=== PATIENT | female | born 1995 | race Caucasian/White ===

== ENCOUNTER 2020-05-27 12:32 | Emergency (ER) | payer OTHER, SELFPAY ==
[2020-05-27 13:44] VITALS: BP 104/74; PULSE 87; RESP 19; TEMP 36.9; O2SAT 98; BMI 31.4
--- NOTE | 2020-05-27 13:44 | CT_ITS ---
EXAMINATION: CT ABDOMEN AND PELVIS WITH CONTRAST CLINICAL INFORMATION: Right lower quadrant pain COMPARISON: 12/31/2014 TECHNIQUE: Multidetector volumetric images were obtained from the superior aspect of the liver through the pubic symphysis following administration 85 mL of Omnipaque 350 intravenous contrast. Sagittal and coronal reformatted images were obtained on the technologist's workstation. Oral contrast: No This CT examination was performed using dose optimization techniques as appropriate, variously including the following: *Automated exposure control *Adjustment of mA and/or kV according to patient size (this includes techniques or standardized protocols for targeted exams where dose is matched to indication/reason for exam; i.e. extremities or head) *Use of iterative reconstruction technique DLP: 497 mGy-cm FINDINGS: LUNG BASES: The visualized lung bases are unremarkable. LIVER, GALLBLADDER, AND BILIARY TREE: The liver is normal in size, shape, and attenuation. No focal hepatic lesion or biliary ductal dilatation is present. The gallbladder is unremarkable with no evidence of radiopaque gallstones, gallbladder wall thickening, or obvious pericholecystic inflammatory changes. PANCREAS: Unremarkable. SPLEEN: Unremarkable. ADRENAL GLANDS: Unremarkable. KIDNEYS AND URETERS: The kidneys are normal in size, shape, and attenuation. No hydronephrosis, hydroureter, or calculi seen. No perinephric stranding. BLADDER: Unremarkable. GASTROINTESTINAL TRACT: The stomach is unremarkable. Normal caliber small bowel. There is no obstruction. No colonic wall thickening or inflammatory change. Normal appendix noted extending posteriorly in the pelvis. No free air or free fluid. ABDOMINAL WALL: No significant hernia is appreciated. LYMPH NODES: Normal. VASCULAR: Unremarkable. PELVIC VISCERA: Anteverted uterus. No adnexal mass. Tampon in place within the vagina. OSSEOUS STRUCTURES: No acute or suspicious osseous abnormality. CT/CT abdomen pelvis w con IMPRESSION: No acute finding of the abdomen or pelvis. Normal appendix. No inflammatory changes.
--- NOTE | 2020-05-27 13:50 | ED_ITS ---
HPI - Abdominal Pain General Chief Complaint: Abdominal Pain Stated Complaint: abd pain Time Seen by Provider: 05/27/20 13:44 Source: patient Mode of arrival: ambulatory Limitations: no limitations History of Present Illness MD elicited complaint: abdominal pain Onset (ago): day(s) (last night) Pain Consistency: constant Location: epigastric Severity: moderate Radiation: epigastric Migration to: no migration Exacerbating factors: vomiting and movement Relieving factors: nothing Context: possible food poisoning (started after eating [employer]) Associated symptoms: nausea and vomiting Related Data Previous Rx's Medication Instructions Recorded ondansetron 4 mg PO Q8H PRN #20 tab 05/27/20 promethazine 6.25 mg PO TID PRN #20 tab 05/27/20 Allergies Allergy/AdvReac Type Severity Reaction Status Date / Time morphine [MORPHINE] AdvReac Mild ITCHING Unverified 03/31/20 17:15 Review of Systems Review of Systems Constitutional : No Weight loss, No Fever, No Chills ENT/Mouth : No sore throat, No Rhinorrhea Eyes: No Swelling, No Redness Cardiovascular : No Chest Pain, No SOB, NoEdema Respiratory : No Cough, No Sputum, No Wheezing Gastrointestinal : Positive Nausea, Positive Vomiting, no Diarrhea, positive abdominal Pain, No Hematochezia, No Melena Genitourinary : No Dysuria, No Urinary Frequency, No Hematuria, No Urgency Musculoskeletal : No joint pain, No Myalgias, No Joint Swelling Skin : No Skin Lesions, No rash Neuro : No Weakness, No Numbness, No Dizziness, No Headache Psych : No Anxiety/Panic, No Depression Heme/Lymph: No Bruising, No Lymphadenopathy Endocrine : No Polyuria, No Polydipsia All other systems reviewed and are negative. Physical Exam Vital Signs: Vital Signs: Last Vital Signs Temp 98.4 F 05/27/20 13:44 Pulse 87 05/27/20 13:44 Resp 19 05/27/20 13:44 BP 104/74 05/27/20 13:44 Pulse Ox 98 05/27/20 13:44 Body Mass Index 31.4 Appearance: Alert. Oriented X3. active vomiting, no acute distress, pos anxiety Eyes: Pupils equal, round and reactive to light. ENT: Pharynx dry MM Neck: Normal inspection. Neck supple. CVS: Normal heart rate and rhythm. Pulses normal. Respiratory: No respiratory distress. Breath sounds normal. Abdomen: Soft and nontender. Skin: Skin warm and dry. Normal skin color. Normal skin turgor. Extremities: No lower extremity edema. No calf ttp Neuro: Oriented X 3. No motor deficit. No sensory deficit. Course Course Course Narrative: feels better, not toxic, WBC due to vomting, labs and CT scan negative MDM - Abdominal Pain MDM Narrative Medical decision making narrative: 25 yo female with upper abdominal pain and RLQ pain - here with vomiting after eating [employer] - possible food poisoning vs appendicitis, will need labs, IVF, IV reglan, CT scan to evaluate for appendicitis Lab Data Result diagrams: 05/27/20 14:13 05/27/20 14:13 Labs: Lab Results 05/27/20 05/27/20 05/27/20 Range/Units 14:13 14:13 14:13 WBC 16.1 H (4.8-10.8) X10*3/uL RBC 4.71 (4.20-5.50) X10*6/uL Hgb 14.8 (12.0-16.0) g/dl Hct 43.6 (37-47) % MCV 92.6 (80-98) fL MCH 31.4 (27.0-33.0) pg MCHC 33.9 (31.0-35.0) g/dl RDW 12.3 (11.0-16.0) % Plt Count 373 (160-400) X10*3/uL MPV 9.4 (9.4-12.3) fL Immature Gran % (Auto) 0.5 H (0.0-0.4) % Neut % (Auto) 81.4 H (45-73) % Lymph % (Auto) 12.8 L (20-40) % [place] % (Auto) 5.1 (2-11) % Eos % (Auto) 0.1 (0-4) % Baso % (Auto) 0.1 (0-2) % Lymph # (Auto) 2.1 (1.2-4.9) X10*3/uL [place] # (Auto) 0.8 (0.1-1.2) X10*3/uL Eos # (Auto) 0.0 (0.0-0.4) X10*3/uL Baso # (Auto) 0.0 (0.0-0.2) X10*3/uL Abs Immat Gran (auto) 0.08 H (0.00-0.03) X10*3/uL Absolute Neuts (auto) 13.1 H (2.0-8.3) X10*3/uL Absolute Nucleated RBC 0.000 (0.0-0.012) X10*3/uL Nucleated RBC % (auto) 0.0 (0.0-0.2) /100WBC Hold Blue Top SEE NOTE Sodium 139 (135-145) mmol/L Potassium 3.8 (3.3-5.1) mmol/l Chloride 105 (96-108) mmol/L Carbon Dioxide 23 (22-29) mmol/L Anion Gap 15 (12-20) BUN 12 (9-16) mg/dL Creatinine 0.73 (0.5-1.4) mg/dL Estim Creat Clear Calc 111.9 Estimated GFR > 60 Random Glucose 110 (60-115) mg/dL Calcium 9.4 (8.4-10.2) mg/dL Magnesium (1.6-2.6) mg/dL Total Bilirubin (0.0-1.0) mg/dL Direct Bilirubin (0.0-0.5) mg/dL AST (5-31) U/L ALT (0-31) U/L Alkaline Phosphatase (39-117) U/L Total Protein (6.5-8.0) g/dL Albumin (3.5-5.0) g/dL Lipase (8-78) U/L Urine Color Urine Appearance Urine pH (5.0-8.0) Ur Specific [place] (1.005-1.025) Urine Protein (NEG-TRACE) MG/DL Urine Glucose (UA) (NEG) MG/DL Urine Ketones (NEG) MG/DL Urine Blood (NEG) Urine Nitrite (NEG) Ur Leukocyte Esterase (NEG) Urine RBC (0) /HPF Urine WBC (0-4) /HPF Ur Squamous Epith Cells /LPF Urine Bacteria /LPF Urine Mucus /LPF Urine Test (NEGATIVE) 05/27/20 05/27/20 Range/Units 14:13 14:18 WBC (4.8-10.8) X10*3/uL RBC (4.20-5.50) X10*6/uL Hgb (12.0-16.0) g/dl Hct (37-47) % MCV (80-98) fL MCH (27.0-33.0) pg MCHC (31.0-35.0) g/dl RDW (11.0-16.0) % Plt Count (160-400) X10*3/uL MPV (9.4-12.3) fL Immature Gran % (Auto) (0.0-0.4) % Neut % (Auto) (45-73) % Lymph % (Auto) (20-40) % [place] % (Auto) (2-11) % Eos % (Auto) (0-4) % Baso % (Auto) (0-2) % Lymph # (Auto) (1.2-4.9) X10*3/uL [place] # (Auto) (0.1-1.2) X10*3/uL Eos # (Auto) (0.0-0.4) X10*3/uL Baso # (Auto) (0.0-0.2) X10*3/uL Abs Immat Gran (auto) (0.00-0.03) X10*3/uL Absolute Neuts (auto) (2.0-8.3) X10*3/uL Absolute Nucleated RBC (0.0-0.012) X10*3/uL Nucleated RBC % (auto) (0.0-0.2) /100WBC Hold Blue Top Sodium (135-145) mmol/L Potassium (3.3-5.1) mmol/l Chloride (96-108) mmol/L Carbon Dioxide (22-29) mmol/L Anion Gap (12-20) BUN (9-16) mg/dL Creatinine (0.5-1.4) mg/dL Estim Creat Clear Calc Estimated GFR Random Glucose (60-115) mg/dL Calcium (8.4-10.2) mg/dL Magnesium 2.0 (1.6-2.6) mg/dL Total Bilirubin 0.5 (0.0-1.0) mg/dL Direct Bilirubin 0.2 (0.0-0.5) mg/dL AST 13 (5-31) U/L ALT 13 (0-31) U/L Alkaline Phosphatase 115 (39-117) U/L Total Protein 7.4 (6.5-8.0) g/dL Albumin 4.6 (3.5-5.0) g/dL Lipase 29 (8-78) U/L Urine Color YELLOW Urine Appearance CLOUDY Urine pH 6.5 (5.0-8.0) Ur Specific [place] >= 1.030 H (1.005-1.025) Urine Protein 2+ H (NEG-TRACE) MG/DL Urine Glucose (UA) NEG (NEG) MG/DL Urine Ketones >=80 (NEG) MG/DL Urine Blood 3+ H (NEG) Urine Nitrite NEG (NEG) Ur Leukocyte Esterase TRACE H (NEG) Urine RBC 50-75 H (0) /HPF Urine WBC 1-4 (0-4) /HPF Ur Squamous Epith Cells 1+ /LPF Urine Bacteria NONE /LPF Urine Mucus 1+ /LPF Urine Test NEGATIVE (NEGATIVE) Discharge Plan Discharge Clinical Impression: Abdominal pain in female Vomiting Qualifiers: Vomiting type: unspecified Vomiting Intractability: non-intractable Nausea presence: with nausea Qualified Code(s): R11.2 - Nausea with vomiting, un specified Patient Disposition: Home, Self-Care Instructions: Acute Nausea and Vomiting (ED), Abdominal Pain (ED) Additional Instructions: return to ED for any worsening symptoms or concerns Prescriptions: New ondansetron 4 mg tablet,disintegrating 4 mg PO Q8H PRN (Reason: nausea and vomiting) Qty: 20 RF: 0 promethazine 25 mg tablet 6.25 mg PO TID PRN (Reason: nausea and vomiting) Qty: 20 RF: 0 Referrals: Physician,Unknown [Primary Care Provider] - 2 days (PCP if not better) [facility] Past Medical History Attestation statement: The following information was validated with the patient. Medical History Heavy menses Menses painful Social History Social History Alcohol intake: never Smoking Status: Current every day smoker Use of substances other than those prescribed or required for medical reasons: Yes Substance Use Type: Marijuana and Opiates Substance Use Frequency: Daily Last Used Substance: Just Prior to Admission Any prior treatment program specific to substance use: No Advance Directives: Yes Advance Directives Information Provided: Yes (MOTHER) Advance Directives on File: No
--- NOTE | 2020-05-27 14:14 | PC.NURSE ---
iv inserted, labs drawn
[2020-05-27 14:17] LABS: MANUAL DIFF FLAG NO
[2020-05-27] MEDS: 0.9 % Sodium Chloride 1,000 ML 999 ML IVCONT (14:18)
[2020-05-27] MEDS: Metoclopramide HCl 10 MG/2 ML VIAL IVPUSH (14:19)
[2020-05-27] MEDS: Ketorolac Tromethamine 30 MG/ML VIAL IVPUSH (14:19)
[2020-05-27] MEDS: diphenhydrAMINE HCL 50 MG/ML VIAL 25 MG IVPUSH (14:19)
[2020-05-27 14:22] LABS: Basophils Percent Auto 0.1 % (0-2); Eosinophils Percent Auto 0.1 % (0-4); Hematocrit 43.6 % (37-47); Hemoglobin 14.8 g/dl (12.0-16.0); Imm Gran Abs Auto 0.08 X10*3/uL (0.00-0.03); Imm Gran Pct Auto 0.5 % (0.0-0.4); Lymphocytes Absolute Auto 2.1 X10*3/uL (1.2-4.9); Lymphocytes Percent Auto 12.8 % (20-40); Mean Corpuscular HGB Conc 33.9 g/dl (31.0-35.0); Mean Corpuscular Hemoglobin 31.4 pg (27.0-33.0); Mean Corpuscular Volume 92.6 fL (80-98); Mean Platelet Volume 9.4 fL (9.4-12.3); Monocytes Absolute Auto 0.8 X10*3/uL (0.1-1.2); Monocytes Percent Auto 5.1 % (2-11); Neutrophils Absolute Auto 13.1 X10*3/uL (2.0-8.3); Neutrophils Percent Auto 81.4 % (45-73); Platelet Count 373 X10*3/uL (160-400); Red Blood Count 4.71 X10*6/uL (4.20-5.50); Red Cell Distribution Width 12.3 % (11.0-16.0); White Blood Count 16.1 X10*3/uL (4.8-10.8)
--- NOTE | 2020-05-27 14:26 | PC.NURSE ---
pt a&ox3, talking on cell phone, iv inserted, labs drawn, urine obtained, pt medicated per order, vss, will continue to monitor.
[2020-05-27 14:34] LABS: Glucose Urine UA NEG (NEG); Leukocyte Esterase Urine TRACE (NEG); Nitrite Urine NEG (NEG); PH 6.5 (5.0-8.0); Specific Gravity - Urine >= 1.030 (1.005-1.025); Urine Blood 3+ (NEG); Urine Ketones >=80 MG/DL (NEG); Urine Protein 2+ MG/DL (NEG-TRACE)
[2020-05-27 14:37] LABS: Appearance Urine CLOUDY; Color Urine YELLOW
[2020-05-27 14:38] LABS: UPreg QC Valid YES; Urine Pregnancy NEGATIVE (NEGATIVE)
[2020-05-27 14:41] LABS: Anion Gap 15 (12-20); Blood Urea Nitrogen 12 mg/dL (9-16); Calcium 9.4 mg/dL (8.4-10.2); Carbon Dioxide 23 mmol/L (22-29); Chloride 105 mmol/L (96-108); Creatinine Clr Calc Pharmacy 111.9; Estimated Glomerular Filt Rate > 60; Glucose Random 110 mg/dL (60-115); Potassium 3.8 mmol/l (3.3-5.1); Sodium 139 mmol/L (135-145)
[2020-05-27 14:42] LABS: Alanine Aminotransferase 13 U/L (0-31); Albumin Level 4.6 g/dL (3.5-5.0); Alkaline Phosphatase 115 U/L (39-117); Aspartate Amino Transferase 13 U/L (5-31); Bilirubin Direct 0.2 mg/dL (0.0-0.5); Bilirubin Total 0.5 mg/dL (0.0-1.0); Lipase 29 U/L (8-78); Total Protein 7.4 g/dL (6.5-8.0)
[2020-05-27 14:44] LABS: Mucus Urine 1+ /LPF; Squamous Epithelial Cell Urine 1+ /LPF
[2020-05-27 14:45] LABS: RBC Urine 50-75 /HPF (0)
[2020-05-27] MEDS: iohexoL 350 MG/ML 100 ML INFUS..BTL IV (14:53)
--- NOTE | 2020-05-27 14:56 | PC.NURSE ---
pt return from ct scan
== END 2020-05-27 16:01 | disposition home or self-care (01) ==
PROVIDERS: Emergency Provider Emergency Medicine
DX: R10.31 Right lower quadrant pain (principal); R11.2 Nausea with vomiting, unspecified; F11.90 Opioid use, unspecified, uncomplicated; F12.90 Cannabis use, unspecified, uncomplicated; F17.200 Nicotine dependence, unspecified, uncomplicated; Z71.6 Tobacco abuse counseling; Z79.899 Other long term (current) drug therapy
CPT/HCPCS: 36415; 74177; 80048; 80076; 81001; 81025; 83690; 83735; 85025; 87086; 96361; 96374; 96375; 99284; J1200; J1885; J2765; Q9967

== ENCOUNTER 2020-05-28 09:28 | Emergency (ER) | payer OTHER, SELFPAY ==
[2020-05-28 09:36] VITALS: BP 132/97; PULSE 80; RESP 16; TEMP 36.2; O2SAT 100; BMI 31.1
--- NOTE | 2020-05-28 09:55 | US_ITS ---
EXAMINATION: US ABDOMEN LIMITED CLINICAL INFORMATION: 25-year-old female patient with upper abdominal pain.. COMPARISON: CT of the abdomen and pelvis on 05/27/2020. (Negative). TECHNIQUE: Real-time imaging of the right upper quadrant abdominal viscera. FINDINGS: PANCREAS: Normal. LIVER: Normal. The liver is normal in size. The liver contour is normal. Parenchymal echogenicity is normal. No focal hepatic lesion. There is no intrahepatic biliary duct dilatation seen. GALLBLADDER: Normal. The gallbladder is physiologically distended without evidence of stones, sludge, polyps, wall thickening or pericholecystic fluid. A phrygian cap is present. COMMON BILE DUCT: Normal in caliber measuring 0.3 cm in diameter. RIGHT KIDNEY: Normal. No hydronephrosis. No renal calculi or focal parenchymal lesions. The kidney measures 10.6 cm in maximum dimension. FREE FLUID: None. US/US abdomen limited IMPRESSION: Normal exam.
[2020-05-28] MEDS: Metoclopramide HCl 10 MG/2 ML VIAL IVPUSH (10:07)
[2020-05-28] MEDS: 0.9 % Sodium Chloride 1,000 ML 999 ML IVCONT (10:07)
--- NOTE | 2020-05-28 10:16 | ED.ABDPAIN ---
HPI - Abdominal Pain General Chief Complaint: Abdominal Pain Stated Complaint: VOMITING ABD PAIN Time Seen by Provider: 05/28/20 09:52 Source: patient Mode of arrival: ambulatory Limitations: no limitations History of Present Illness HPI narrative: 25yoF painful/heavy menses presenting to the ED with complaints of nausea/vomiting with severe diffuse abdominal pain. She was seen here for the same thing yesterday and had a full workup including a CT scan of abdomen and pelvis and everything was within normal limits. She was noted to have an elevated white blood cell count yesterday at 16,000 otherwise all other labs were within normal limits. She reports she smokes marijuana daily. Denies recent travel or sick contacts. Denies bad food exposure. Denies any other symptoms complaints or concerns at this time. Related Data Previous Rx's Medication Instructions Recorded ondansetron 4 mg PO Q8H PRN #20 tab 05/27/20 promethazine 6.25 mg PO TID PRN #20 tab 05/27/20 diphenhydramine HCl [Benadryl 25 mg PO Q6H PRN #10 tab 05/28/20 Allergy] promethazine 25 mg PO TID PRN #10 tab 05/28/20 Allergies Allergy/AdvReac Type Severity Reaction Status Date / Time morphine [MORPHINE] AdvReac Mild ITCHING Unverified 03/31/20 17:15 Review of Systems Review of Systems Constitutional : No Weight loss, No Fever, No Chills, No Night Sweats, No Fatigue, NoMalaise ENT/Mouth: No ear pain, No sore throat, No Difficulty swallowing Cardiovascular : No Chest Pain, No SOB, No Dyspnea on Exertion, No Orthopnea, NoEdema, No Palpitations Respiratory : No Cough, No Sputum, No Wheezing, No Dyspnea Gastrointestinal : + Nausea, + Vomiting, No Diarrhea, + abdominal Pain, No Hematochezia, No Melena Genitourinary : No irregular bleeding, No Dysuria, No Urinary Frequency, No Hematuria,No Urinary Incontinence, No Urgency, No Flank Pain Musculoskeletal : No joint pain, No Myalgias, No Joint Swelling Skin : No Skin Lesions, No rash Neuro : No Weakness, No Numbness, No Paresthesias, No Loss of Consciousness, NoDizziness, No Headache Psych : No Social Issues, Heme/Lymph: No Bruising, No Bleeding,No Lymphadenopathy Endocrine : No Polyuria, No Polydipsia, No Temperature Intolerance Yes all other systems are reviewed and are negative Physical Exam Vital Signs: Vital Signs: Last Vital Signs Temp 98.6 F 05/28/20 15:56 Pulse 75 05/28/20 15:56 Resp 12 05/28/20 15:56 BP 98/54 L 05/28/20 15:56 Pulse Ox 98 05/28/20 15:56 Body Mass Index 31.1 vital signs have been reviewed as normal and appeared to be correct. Blood pressure normal. Heart rate normal. Respiration rate normal. Temperature normal. Oxygen saturation normal. Appearance: Alert. Oriented X3. Very anxious screaming rolling around in the bed saying that her abdomen hurts otherwise No acute distress. Head: Normal external exam. Normocephalic. Eyes: PERRLA. EOMI. Conjunctiva and sclera normal. Eyelids normal. ENT: EAC normal. Pharynx normal. Uvula midline. Moist mucous membranes. Neck: Normal inspection. Neck supple. FROM. No adenopathy. No meningeal signs. CVS: Normal heart rate and rhythm. Heart sound normal. No murmurs noted. Pulses normal throughout. Respiratory: No respiratory distress. Painless inspiration. Breath sounds normal. No wheezes/rales/rhonchi noted. Chest nontender. No accessory muscle usage noted or decreased air movement noted. Abdomen: Soft and TTP diffusely. Bowel sounds normal in all 4 quadrants. No distention noted. No organomegaly noted. No visible injury noted. Back: No CVA tenderness. Full range of motion noted. Skin: Skin warm and dry. Normal skin color. Normal skin turgor. No rashes/lesions/lacerations noted. Extremities: Extremities exhibit normal range of motion. Extremities nontender. Neuro: Oriented X 3. No motor deficit. No sensory deficit. Reflexes normal. Course Course Course Narrative: 10am - 25yoF painful/heavy Min assist presenting to the ED with complaints of nausea/vomiting with severe diffuse abdominal pain. - patient was seen here yesterday had a CT scan abdomen pelvis which was within normal limits no evidence of cholecystitis or appendicitis or any other acute processes. Patient an elevated white blood cell count otherwise all other labs were within normal limits. - concern for marijuana induced cyclic vomiting vs cholecystitis. - Plan: Labs, US of abd limited of upper abdomen as patient is reporting upper abdominal pain, UA, UHCG. Provide symptomatic treatment 1 L of IV fluids, 30 mg of Toradol, 10 mg of Reglan and 25 mg of Benadryl and re-evaluate. Reevaluation(s) Reevaluation #1: - [place] [address] has decreased when compared to yesterday was at 16,000. Otherwise normal limits. Ultrasound of abdomen limited is within normal limits no acute processes such as cholecystitis noted. - patient continued to complain about nausea and vomiting therefore she was also given half a mg of Ativan, 12.5 mg of Phenergan. I just went to reassess the patient and she is now resting and requested to let her rest for a little while longer. After this I would re-evaluate and attempt a p.o. fluid trial and attempt to discharge. Patient understands agrees with this plan. Will re-evaluate Time: 12:39 Reevaluation #2: Patient is now awake and alert feeling a lot better denies any active belly pain has not had any nausea vomiting since the Ativan and the Phenergan. Is now tolerating p.o. fluids. Requesting to go home at this time. Will DC home with symptomatic treatment along with instructions return if any new or worsening symptoms to follow up with primary care provider. Patient understands agrees the plan. Time: 16:35 MDM - Abdominal Pain Medical Records Attestation: I reviewed the patient's medical records. Lab Data Attestation: I reviewed the patient's lab results. Result diagrams: 05/28/20 10:13 05/28/20 10:53 Labs: Lab Results 05/28/20 05/28/20 05/28/20 Range/Units 10:13 10:13 10:13 WBC 14.6 H (4.8-10.8) X10*3/uL RBC 4.75 (4.20-5.50) X10*6/uL Hgb 15.1 (12.0-16.0) g/dl Hct 43.9 (37-47) % MCV 92.4 (80-98) fL MCH 31.8 (27.0-33.0) pg MCHC 34.4 (31.0-35.0) g/dl RDW 12.5 (11.0-16.0) % Plt Count 400 (160-400) X10*3/uL MPV 9.4 (9.4-12.3) fL Immature Gran % (Auto) 0.5 H (0.0-0.4) % Neut % (Auto) 59.1 (45-73) % Lymph % (Auto) 33.9 (20-40) % [place] % (Auto) 5.8 (2-11) % Eos % (Auto) 0.5 (0-4) % Baso % (Auto) 0.2 (0-2) % Lymph # (Auto) 4.9 (1.2-4.9) X10*3/uL [place] # (Auto) 0.9 (0.1-1.2) X10*3/uL Eos # (Auto) 0.1 (0.0-0.4) X10*3/uL Baso # (Auto) 0.0 (0.0-0.2) X10*3/uL Abs Immat Gran (auto) 0.07 H (0.00-0.03) X10*3/uL Absolute Neuts (auto) 8.6 H (2.0-8.3) X10*3/uL Absolute Nucleated RBC 0.000 (0.0-0.012) X10*3/uL Nucleated RBC % (auto) 0.0 (0.0-0.2) /100WBC PT 11.1 (10.8-13.0) SEC INR 0.9 (0.9-1.1) Sodium Cancelled Potassium Cancelled Chloride Cancelled Carbon Dioxide Cancelled Anion Gap Cancelled BUN Cancelled Creatinine Cancelled Estim Creat Clear Calc Cancelled Estimated GFR Cancelled Random Glucose Cancelled Calcium Cancelled Magnesium Cancelled Total Bilirubin Cancelled Direct Bilirubin Cancelled AST Cancelled ALT Cancelled Alkaline Phosphatase Cancelled Total Protein Cancelled Albumin Cancelled 05/28/20 Range/Units 10:53 WBC (4.8-10.8) X10*3/uL RBC (4.20-5.50) X10*6/uL Hgb (12.0-16.0) g/dl Hct (37-47) % MCV (80-98) fL MCH (27.0-33.0) pg MCHC (31.0-35.0) g/dl RDW (11.0-16.0) % Plt Count (160-400) X10*3/uL MPV (9.4-12.3) fL Immature Gran % (Auto) (0.0-0.4) % Neut % (Auto) (45-73) % Lymph % (Auto) (20-40) % [place] % (Auto) (2-11) % Eos % (Auto) (0-4) % Baso % (Auto) (0-2) % Lymph # (Auto) (1.2-4.9) X10*3/uL [place] # (Auto) (0.1-1.2) X10*3/uL Eos # (Auto) (0.0-0.4) X10*3/uL Baso # (Auto) (0.0-0.2) X10*3/uL Abs Immat Gran (auto) (0.00-0.03) X10*3/uL Absolute Neuts (auto) (2.0-8.3) X10*3/uL Absolute Nucleated RBC (0.0-0.012) X10*3/uL Nucleated RBC % (auto) (0.0-0.2) /100WBC PT (10.8-13.0) SEC INR (0.9-1.1) Sodium 141 Potassium 3.6 Chloride 107 Carbon Dioxide 21 L Anion Gap 17 BUN 13 Creatinine 0.82 Estim Creat Clear Calc 99.0 Estimated GFR > 60 Random Glucose 88 Calcium 8.4 D Magnesium 1.9 Total Bilirubin 0.7 Direct Bilirubin 0.2 AST 18 ALT 13 Alkaline Phosphatase 104 Total Protein 6.9 Albumin 4.2 Discharge Plan Discharge Clinical Impression: Cannabis-induced disorder, Cyclical vomiting Abdominal pain Qualifiers: Abdominal location: upper abdomen, unspecified Qualified Code(s): R10.10 - Upper abdominal pain, unspecified Patient Disposition: Home, Self-Care Instructions: Cyclic Vomiting Syndrome (ED) Prescriptions: New promethazine 25 mg tablet 25 mg PO TID PRN (Reason: nausea and vomiting) Qty: 10 RF: 0 diphenhydramine HCl [Benadryl Allergy] 25 mg tablet 25 mg PO Q6H PRN (Reason: nausea and vomiting) Qty: 10 RF: 0 No Action ondansetron 4 mg tablet,disintegrating 4 mg PO Q8H PRN (Reason: nausea and vomiting) Qty: 20 RF: 0 promethazine 25 mg tablet 6.25 mg PO TID PRN (Reason: nausea and vomiting) Qty: 20 RF: 0 Referrals: Physician,None [Primary Care Provider] - 2 days (your PCP) Stand Alone Forms: Work/School Release Print Language: Setswana [facility] Past Medical History Attestation statement: The following information was validated with the patient. Medical History Heavy menses Menses painful Social History Social History Alcohol intake: never Smoking Status: Current every day smoker Substance Use Type: Marijuana and Opiates Advance Directives: No Advance Directives Information Provided: No
[2020-05-28] MEDS: diphenhydrAMINE HCL 50 MG/ML VIAL 25 MG IVPUSH (10:17)
[2020-05-28 10:18] LABS: MANUAL DIFF FLAG NO
[2020-05-28] MEDS: Ketorolac Tromethamine 15 MG/ML VIAL 30 MG IV (10:18)
--- NOTE | 2020-05-28 10:20 | PC.NURSE ---
PT FORCING HERSELF TO GAG AND VOMIT MEDICATED PER MD ORDERS U/S AT BEDSIDE
[2020-05-28 10:33] LABS: Basophils Percent Auto 0.2 % (0-2); Eosinophils Absolute Auto 0.1 X10*3/uL (0.0-0.4); Eosinophils Percent Auto 0.5 % (0-4); Hematocrit 43.9 % (37-47); Hemoglobin 15.1 g/dl (12.0-16.0); Imm Gran Abs Auto 0.07 X10*3/uL (0.00-0.03); Imm Gran Pct Auto 0.5 % (0.0-0.4); Lymphocytes Absolute Auto 4.9 X10*3/uL (1.2-4.9); Lymphocytes Percent Auto 33.9 % (20-40); Mean Corpuscular HGB Conc 34.4 g/dl (31.0-35.0); Mean Corpuscular Hemoglobin 31.8 pg (27.0-33.0); Mean Corpuscular Volume 92.4 fL (80-98); Mean Platelet Volume 9.4 fL (9.4-12.3); Monocytes Absolute Auto 0.9 X10*3/uL (0.1-1.2); Monocytes Percent Auto 5.8 % (2-11); Neutrophils Absolute Auto 8.6 X10*3/uL (2.0-8.3); Neutrophils Percent Auto 59.1 % (45-73); Platelet Count 400 X10*3/uL (160-400); Red Blood Count 4.75 X10*6/uL (4.20-5.50); Red Cell Distribution Width 12.5 % (11.0-16.0); White Blood Count 14.6 X10*3/uL (4.8-10.8)
--- NOTE | 2020-05-28 10:39 | PC.NURSE ---
GOOD EFFECT FROM MEDS,
[2020-05-28 10:49] LABS: INTERNATIONAL NORM RATIO 0.9 (0.9-1.1); Prothrombin Time 11.1 SEC (10.8-13.0)
[2020-05-28 11:29] LABS: Alanine Aminotransferase 13 U/L (0-31); Albumin Level 4.2 g/dL (3.5-5.0); Alkaline Phosphatase 104 U/L (39-117); Anion Gap 17 (12-20); Aspartate Amino Transferase 18 U/L (5-31); Bilirubin Direct 0.2 mg/dL (0.0-0.5); Bilirubin Total 0.7 mg/dL (0.0-1.0); Blood Urea Nitrogen 13 mg/dL (9-16); Calcium 8.4 mg/dL (8.4-10.2); Carbon Dioxide 21 mmol/L (22-29); Chloride 107 mmol/L (96-108); Estimated Glomerular Filt Rate > 60; Glucose Random 88 mg/dL (60-115); Magnesium 1.9 mg/dL (1.6-2.6); Potassium 3.6 mmol/l (3.3-5.1); Sodium 141 mmol/L (135-145); Total Protein 6.9 g/dL (6.5-8.0)
[2020-05-28 11:33] VITALS: BP 114/82; PULSE 88; RESP 20; TEMP 36.6
[2020-05-28] MEDS: LORazepam 2 MG/ML VIAL 0.5 MG IVPUSH (11:51)
--- NOTE | 2020-05-28 14:24 | PC.NURSE ---
PT IS SLEEPING, RESPIRATIONS EASY AND EVEN
[2020-05-28 15:56] VITALS: BP 98/54; PULSE 75; RESP 12; TEMP 37; O2SAT 98
--- NOTE | 2020-05-28 15:57 | PC.NURSE ---
AROUSES EASILY, DENIES PAIN AND NAUSEA COLOR PINK, SKIN WARM AND DRY
[2020-05-28 16:47] VITALS: BP 110/65; PULSE 78; RESP 14; TEMP 36.6
== END 2020-05-28 16:59 | disposition home or self-care (01) ==
PROVIDERS: Physician Assistant Medical; Emergency Provider Emergency Medicine
DX: R11.15 Cyclical vomiting syndrome unrelated to migraine (principal); F12.90 Cannabis use, unspecified, uncomplicated; R11.2 Nausea with vomiting, unspecified; F11.90 Opioid use, unspecified, uncomplicated; Z79.899 Other long term (current) drug therapy; F17.200 Nicotine dependence, unspecified, uncomplicated; Z71.6 Tobacco abuse counseling
CPT/HCPCS: 76705; 80048; 80076; 83735; 85025; 85610; 96361; 96374; 96375; 99284; J1200; J1885; J2060; J2765

== ENCOUNTER 2020-07-02 13:14 | Emergency (ER) | payer OTHER, SELFPAY ==
[2020-07-02 13:22] VITALS: BP 111/76; BP 121/82; PULSE 72; PULSE 81; RESP 20; TEMP 36.5; O2SAT 100; O2SAT 99; BMI 30.3
--- NOTE | 2020-07-02 13:23 | ED_ITS ---
HPI - Abdominal Pain General Chief Complaint: Abdominal Pain Stated Complaint: R LOW ABD PAIN Time Seen by Provider: 07/02/20 13:19 Source: patient, EMS and old records reviewed Mode of arrival: EMS History of Present Illness MD elicited complaint: abdominal pain and other (n/v) Pertinent past history: other (seen here x 2 in May as well - negative US and CT scan) Onset (ago): month(s) (1) Pain Consistency: constant Location: RLQ Severity: moderate Radiation: none Migration to: no migration Exacerbating factors: movement Relieving factors: nothing Context: history of similar episodes Associated symptoms: nausea and vomiting Related Data Previous Rx's Medication Instructions Recorded ondansetron 4 mg PO Q8H PRN #20 tab 05/27/20 promethazine 6.25 mg PO TID PRN #20 tab 05/27/20 diphenhydramine HCl [Benadryl 25 mg PO Q6H PRN #10 tab 05/28/20 Allergy] promethazine 25 mg PO TID PRN #10 tab 05/28/20 Allergies Allergy/AdvReac Type Severity Reaction Status Date / Time morphine [MORPHINE] AdvReac Mild ITCHING Verified 07/02/20 13:25 Review of Systems Review of Systems Constitutional : No Weight loss, No Fever, No Chills ENT/Mouth : No sore throat, No Rhinorrhea Eyes: No Swelling, No Redness Cardiovascular : No Chest Pain, No SOB, NoEdema Respiratory : No Cough, No Sputum, No Wheezing Gastrointestinal : Positive Nausea, Positive Vomiting, no Diarrhea, positive abdominal Pain, No Hematochezia, No Melena Genitourinary : No Dysuria, No Urinary Frequency, No Hematuria, No Urgency Musculoskeletal : No joint pain, No Myalgias, No Joint Swelling Skin : No Skin Lesions, No rash Neuro : No Weakness, No Numbness, No Dizziness, No Headache Psych : No Anxiety/Panic, No Depression Heme/Lymph: No Bruising, No Lymphadenopathy Endocrine : No Polyuria, No Polydipsia All other systems reviewed and are negative. Physical Exam Vital Signs: Vital Signs: Last Vital Signs Temp 97.7 F 07/02/20 13:22 Pulse 81 07/02/20 13:22 Resp 20 07/02/20 13:22 BP 121/82 07/02/20 13:22 Pulse Ox 99 07/02/20 13:22 Body Mass Index 30.3 Appearance: Alert. Oriented X3. No acute distress. yelling out loud, on facetime yelling into phone Eyes: Pupils equal, round and reactive to light. ENT: Pharynx normal. Neck: Normal inspection. Neck supple. CVS: Normal heart rate and rhythm. Pulses normal. Respiratory: No respiratory distress. Breath sounds normal. Abdomen: Soft and moderate RLQ tenderness no rebound or guarding. Skin: Skin warm and dry. Normal skin color. Normal skin turgor. Extremities: No lower extremity edema. No calf ttp Neuro: Oriented X 3. No motor deficit. No sensory deficit. Course Course Course Narrative: WBC 20K but patient was actively in bathroom repeatedly dry heaving, yelling like acute phase and due to vomiting patient now up on stretcher states she wants to leave and go to [facility], aware her labs are pending, she has been on the phone fighting with her significant other for the most of her ED visit MDM - Abdominal Pain MDM Narrative Medical decision making narrative: 25 yo female seen last month around her menses had negative US and CT scan at that time for RLQ pain presents wtih the same, at this time will need labs, IVF, IV ativan and haldol for n/v, unless sig lab derangement will hold off imaging could be related to upcoming menses Lab Data Result diagrams: 07/02/20 13:46 07/02/20 14:23 Labs: Lab Results 07/02/20 07/02/20 07/02/20 Range/Units 13:46 13:46 13:46 WBC 20.3 H (4.8-10.8) X10*3/uL RBC 4.28 (4.20-5.50) X10*6/uL Hgb 13.5 (12.0-16.0) g/dl Hct 40.1 (37-47) % MCV 93.7 (80-98) fL MCH 31.5 (27.0-33.0) pg MCHC 33.7 (31.0-35.0) g/dl RDW 12.4 (11.0-16.0) % Plt Count 339 (160-400) X10*3/uL MPV 9.3 L (9.4-12.3) fL Immature Gran % (Auto) 0.5 H (0.0-0.4) % Neut % (Auto) 76.8 H (45-73) % Lymph % (Auto) 17.1 L (20-40) % [place] % (Auto) 5.1 (2-11) % Eos % (Auto) 0.3 (0-4) % Baso % (Auto) 0.2 (0-2) % Lymph # (Auto) 3.5 (1.2-4.9) X10*3/uL [place] # (Auto) 1.0 (0.1-1.2) X10*3/uL Eos # (Auto) 0.1 (0.0-0.4) X10*3/uL Baso # (Auto) 0.1 (0.0-0.2) X10*3/uL Abs Immat Gran (auto) 0.10 H (0.00-0.03) X10*3/uL Absolute Neuts (auto) 15.6 H (2.0-8.3) X10*3/uL Absolute Nucleated RBC 0.000 (0.0-0.012) X10*3/uL Nucleated RBC % (auto) 0.0 (0.0-0.2) /100WBC Hold Blue Top SEE NOTE Sodium Cancelled Potassium Cancelled Chloride Cancelled Carbon Dioxide Cancelled Anion Gap Cancelled BUN Cancelled Creatinine Cancelled Estim Creat Clear Calc Cancelled Estimated GFR Cancelled Random Glucose Cancelled Calcium Cancelled Magnesium Cancelled Total Bilirubin Cancelled Direct Bilirubin Cancelled AST Cancelled ALT Cancelled Alkaline Phosphatase Cancelled Total Protein Cancelled Albumin Cancelled Lipase Cancelled Urine Color Urine Appearance Urine pH (5.0-8.0) Ur Specific [place] (1.005-1.025) Urine Protein (NEG-TRACE) MG/DL Urine Glucose (UA) (NEG) MG/DL Urine Ketones (NEG) MG/DL Urine Blood (NEG) Urine Nitrite (NEG) Ur Leukocyte Esterase (NEG) Urine Test (NEGATIVE) 07/02/20 Range/Units 14:23 WBC (4.8-10.8) X10*3/uL RBC (4.20-5.50) X10*6/uL Hgb (12.0-16.0) g/dl Hct (37-47) % MCV (80-98) fL MCH (27.0-33.0) pg MCHC (31.0-35.0) g/dl RDW (11.0-16.0) % Plt Count (160-400) X10*3/uL MPV (9.4-12.3) fL Immature Gran % (Auto) (0.0-0.4) % Neut % (Auto) (45-73) % Lymph % (Auto) (20-40) % [place] % (Auto) (2-11) % Eos % (Auto) (0-4) % Baso % (Auto) (0-2) % Lymph # (Auto) (1.2-4.9) X10*3/uL [place] # (Auto) (0.1-1.2) X10*3/uL Eos # (Auto) (0.0-0.4) X10*3/uL Baso # (Auto) (0.0-0.2) X10*3/uL Abs Immat Gran (auto) (0.00-0.03) X10*3/uL Absolute Neuts (auto) (2.0-8.3) X10*3/uL Absolute Nucleated RBC (0.0-0.012) X10*3/uL Nucleated RBC % (auto) (0.0-0.2) /100WBC Hold Blue Top Sodium Potassium Chloride Carbon Dioxide Anion Gap BUN Creatinine Estim Creat Clear Calc Estimated GFR Random Glucose Calcium Magnesium Total Bilirubin Direct Bilirubin AST ALT Alkaline Phosphatase Total Protein Albumin Lipase Urine Color YELLOW Urine Appearance HAZY Urine pH 7.0 (5.0-8.0) Ur Specific [place] 1.025 (1.005-1.025) Urine Protein NEG (NEG-TRACE) MG/DL Urine Glucose (UA) NEG (NEG) MG/DL Urine Ketones NEG (NEG) MG/DL Urine Blood NEG (NEG) Urine Nitrite NEG (NEG) Ur Leukocyte Esterase NEG (NEG) Urine Test NEGATIVE (NEGATIVE) Discharge Plan Discharge Clinical Impression: Abdominal pain Qualifiers: Abdominal location: right lower quadrant Qualified Code(s): R10.31 - Right lower quadrant pain Vomiting Qualifiers: Vomiting type: unspecified Vomiting Intractability: non-intractable Nausea presence: with nausea Qualified Code(s): R11.2 - Nausea with vomiting, unspecified Patient Disposition: Left Against Medical Advice Instructions: Acute Nausea and Vomiting (ED), Against Medical Advice (ED), Abdominal Pain (ED) Additional Instructions: return to ED for any worsening symptoms or concerns you were given ativa and haldol in the ED for your vomiting, you left prior to your workup, please come back at any time Prescriptions: No Action ondansetron 4 mg tablet,disintegrating 4 mg PO Q8H PRN (Reason: nausea and vomiting) Qty: 20 RF: 0 promethazine 25 mg tablet 6.25 mg PO TID PRN (Reason: nausea and vomiting) Qty: 20 RF: 0 promethazine 25 mg tablet 25 mg PO TID PRN (Reason: nausea and vomiting) Qty: 10 RF: 0 diphenhydramine HCl [Benadryl Allergy] 25 mg tablet 25 mg PO Q6H PRN (Reason: nausea and vomiting) Qty: 10 RF: 0 PMFSH Past Medical History Attestation statement: The following information was validated with the patient. Medical History Heavy menses Menses painful Social History Social History Alcohol intake: never Smoking Status: Current every day smoker Substance Use Type: Marijuana and Opiates Advance Directives: No Advance Directives Information Provided: Yes
[2020-07-02 13:52] LABS: MANUAL DIFF FLAG NO
[2020-07-02 13:54] LABS: Basophils Absolute Auto 0.1 X10*3/uL (0.0-0.2); Basophils Percent Auto 0.2 % (0-2); Eosinophils Absolute Auto 0.1 X10*3/uL (0.0-0.4); Eosinophils Percent Auto 0.3 % (0-4); Hematocrit 40.1 % (37-47); Hemoglobin 13.5 g/dl (12.0-16.0); Imm Gran Pct Auto 0.5 % (0.0-0.4); Lymphocytes Absolute Auto 3.5 X10*3/uL (1.2-4.9); Lymphocytes Percent Auto 17.1 % (20-40); Mean Corpuscular HGB Conc 33.7 g/dl (31.0-35.0); Mean Corpuscular Hemoglobin 31.5 pg (27.0-33.0); Mean Corpuscular Volume 93.7 fL (80-98); Mean Platelet Volume 9.3 fL (9.4-12.3); Monocytes Percent Auto 5.1 % (2-11); Neutrophils Absolute Auto 15.6 X10*3/uL (2.0-8.3); Neutrophils Percent Auto 76.8 % (45-73); Platelet Count 339 X10*3/uL (160-400); Red Blood Count 4.28 X10*6/uL (4.20-5.50); Red Cell Distribution Width 12.4 % (11.0-16.0); White Blood Count 20.3 X10*3/uL (4.8-10.8)
[2020-07-02] MEDS: Ketorolac Tromethamine 30 MG/ML VIAL IVPUSH (13:54)
[2020-07-02] MEDS: LORazepam 2 MG/ML VIAL 1 MG IVPUSH (13:54)
[2020-07-02] MEDS: Haloperidol Lactate 5 MG/ML VIAL IM (13:54)
[2020-07-02] MEDS: 0.9 % Sodium Chloride 1,000 ML 999 ML IVCONT (13:55)
[2020-07-02 14:38] LABS: Glucose Urine UA NEG (NEG); Leukocyte Esterase Urine NEG (NEG); Nitrite Urine NEG (NEG); Specific Gravity - Urine 1.025 (1.005-1.025); Urine Blood NEG (NEG); Urine Ketones NEG (NEG); Urine Protein NEG (NEG-TRACE)
[2020-07-02 14:48] LABS: Appearance Urine HAZY; Color Urine YELLOW
[2020-07-02 14:51] LABS: UPreg QC Valid YES; Urine Pregnancy NEGATIVE (NEGATIVE)
[2020-07-02 15:01] LABS: Alanine Aminotransferase 14 U/L (0-31); Albumin Level 3.9 g/dL (3.5-5.0); Alkaline Phosphatase 97 U/L (39-117); Anion Gap 11 (12-20); Aspartate Amino Transferase 16 U/L (5-31); Bilirubin Direct 0.2 mg/dL (0.0-0.5); Bilirubin Total 0.4 mg/dL (0.0-1.0); Blood Urea Nitrogen 8 mg/dL (9-16); Calcium 8.5 mg/dL (8.4-10.2); Carbon Dioxide 23 mmol/L (22-29); Chloride 111 mmol/L (96-108); Creatinine Clr Calc Pharmacy 125.4; Estimated Glomerular Filt Rate > 60; Glucose Random 76 mg/dL (60-115); Lipase 25 U/L (8-78); Magnesium 1.9 mg/dL (1.6-2.6); Potassium 3.7 mmol/l (3.3-5.1); Sodium 141 mmol/L (135-145); Total Protein 6.3 g/dL (6.5-8.0)
[2020-07-02 15:02] LABS: Amphetamine Screen Urine Not Detected (Not Detect); Barbiturates, Urine Not Detected (Not Detect); Benzodiazepines Screen Urine Not Detected (Not Detect); Cannabinoid Screen Urine POSITIVE (Not Detect); Cocaine Screen Urine Not Detected (Not Detect); Opiate Screen Urine Not Detected (Not Detect); Phencyclidine Screen Urine Not Detected (Not Detect)
== END 2020-07-02 15:07 | disposition left against medical advice (07) ==
PROVIDERS: Emergency Provider Emergency Medicine
DX: R10.31 Right lower quadrant pain (principal); R11.2 Nausea with vomiting, unspecified; F17.210 Nicotine dependence, cigarettes, uncomplicated; F11.90 Opioid use, unspecified, uncomplicated; F15.90 Other stimulant use, unspecified, uncomplicated; Z71.6 Tobacco abuse counseling; Z79.899 Other long term (current) drug therapy
CPT/HCPCS: 36415; 80048; 80076; 80307; 81003; 81025; 83690; 83735; 85025; 96361; 96372; 96374; 96375; 99283; 99284; J1885; J2060

== ENCOUNTER 2020-07-22 13:55 | Emergency (ER) | payer OTHER, SELFPAY ==
[2020-07-22 14:07] VITALS: BP 130/80; BP 141/76; PULSE 80; PULSE 84; RESP 18; TEMP 37.1; O2SAT 99; BMI 29.2
== END 2020-07-22 16:17 | disposition left against medical advice (07) ==
PROVIDERS: Emergency Provider Emergency Medicine
DX: R10.9 Unspecified abdominal pain (principal)
CPT/HCPCS: 99282; 99283

== ENCOUNTER 2020-07-22 22:33 | Emergency (ER) | payer OTHER, SELFPAY ==
[2020-07-22 22:35] VITALS: PULSE 84; RESP 20; TEMP 36.6; O2SAT 100; BMI 29.2
--- NOTE | 2020-07-22 23:29 | PC.NURSE ---
Pt continues to be yelling in waiting room. Pt forcing herself to vomit by putting her finger down her throat. Pt told to please go to restroom to vomit.
--- NOTE | 2020-07-23 01:59 | ED.GENADULT ---
HPI - General Adult General Chief complaint: Abdominal Pain Stated complaint: Abdominal pain Time Seen by Provider: 07/23/20 01:47 Source: patient Mode of arrival: ambulatory Limitations: no limitations History of Present Illness HPI narrative: 25-year-old female who presents the emergency department for evaluation of abdominal pain and vomiting. Patient states she woke up this morning at 11:00 a.m., urinated and then developed severe abdominal pain. She points to her mid epigastric area when asked to localize the pain. She describes the pain as a constant, sharp pain which is 10/10 this worse. The patient had associated nausea and vomiting. She states that she has had too many episodes of vomiting to count the number. She states that her emesis is greenish yellow with no blood in it. The patient has had similar presentations in the past, and in reviewing her record she was seen 3 times over the past [address] scan, elevated WBC and was diagnosed with cyclic vomiting syndrome most likely secondary to marijuana use. The patient states that she does smoke marijuana daily. She states she smokes at least 10 times a day. She states that her last menstrual period was 3 weeks prior and was normal. Related Data Previous Rx's Medication Instructions Recorded ondansetron 4 mg PO Q8H PRN #20 tab 05/27/20 promethazine 6.25 mg PO TID PRN #20 tab 05/27/20 diphenhydramine HCl [Benadryl 25 mg PO Q6H PRN #10 tab 05/28/20 Allergy] promethazine 25 mg PO TID PRN #10 tab 05/28/20 Allergies Allergy/AdvReac Type Severity Reaction Status Date / Time morphine [MORPHINE] AdvReac Mild ITCHING Verified 07/02/20 13:25 Review of Systems Review of Systems: Yes all other systems are reviewed and are negative Neurologic: Reports Abnormal speech present [facility] Past Medical History [facility] Narrative: The patient has no medical problems. She does smoke 1 pack of cigarettes per day times 12 years, she does not drink alcohol, she smokes marijuana at least 10 times a day. Medical History Heavy menses Menses painful Social History Social History Alcohol intake: current Alcohol intake frequency: a few times a week Alcohol type: beer Smoking Status: Current every day smoker Substance Use Type: Marijuana Substance Use Frequency: Daily Last Used Substance: Hours (ago) Any prior treatment program specific to substance use: No Advance Directives: No Physical Exam Vital Signs: Vital Signs: Last Vital Signs Temp 97.8 F 07/22/20 22:35 Pulse 76 07/23/20 06:00 Resp 16 07/23/20 06:00 BP 129/80 07/23/20 06:00 Pulse Ox 100 07/23/20 06:00 Body Mass Index 29.2 Const: General: cooperative and in distress (Secondary to abdominal pain) moderate Nutritional Appearance: overweight Orientation/consciousness: oriented to person and oriented to place Limitations: no limitations HENMT: Head: Yes normal to inspection, Yes normocephalic and Yes atraumatic Ears: external ears normal General nose exam: Normal external nose present Face and sinus: Yes normal facial exam Mouth: Normal oral and palatal mucosa present Throat: Yes posterior oropharynx normal Eyes: Periorbital: periorbital findings normal Eyelids: Yes eyelids normal Conjunctivae: conjunctivae normal Sclerae: sclerae normal Corneas: corneas normal Pupils: Equal, round and reactive pupils present Direct Ophthalmoscopy: normal light reflex Neck: Neck: Yes full ROM, Yes no lymphadenopathy, Yes no meningeal signs, Yes trachea midline and Yes supple Chest: Chest palpation & inspection: normal inspection of the chest and normal palpation of entire chest wall Resp: Effort & Inspection: normal respiratory effort and able to speak in complete sentences Auscultation: clear to auscultation bilaterally Cardio: Rate: regular rate Rhythm: regular rhythm Heart sounds: S1 normal heart sound present, S2 normal heart sound present and no murmurs GI: Inspection: Yes normal to inspection Palpation (GI): Soft to palpation, Tenderness to palpation present (GI) in the epigastrum (Moderate), no guarding, not rigid and No hepatosplenomegaly present : General: Yes no CVA tenderness Back/Spine/Pelvis: Back: no CVA tenderness Cervical Spine: normal cervical lordosis Thoracic/Lumbar Spine: thoracic and lumbar spine normal to inspection Skin: Lesions: no lesions Rashes: no rashes Wounds: no wounds Neuro: General: oriented to person, oriented to place and no meningeal signs Cranial nerves: Yes Equal, round and reactive pupils present Cognition (Neuro): normal cognition Speech: Abnormal speech present Motor exam (neuro): 5/5 motor strength present throughout Extrem: General: Yes normal to inspection and Yes full ROM Psych: Appearance: well kempt Mental Status: mental status grossly normal Speech and movement: Normal speech and movement present Affect: normal affect Attitude: cooperative Thought process: Normal thought process present Thought content: Normal thought content present Course Course Course Narrative: 25-year-old female who presents emergency department for evaluation of midepigastric abdominal pain and vomiting since 11:00 a.m. on the morning arrival. The patient did appear to be in distress secondary to her pain. The patient did have moderate midepigastric tenderness other was exam is unremarkable. Patient does smoke marijuana 10 times a day and I suspect that her symptoms are consistent with cannabis hyperemesis syndrome/cyclic vomiting syndrome. The patient has had negative CAT scans in the past. I did order laboratory evaluation on the patient. Patient was ordered to get Haldol 2.5 mg IV, Benadryl 50 mg IV and normal saline IV x1 L. 0728: The patient only got minimal relief with the above treatment. The patient's laboratory evaluation [place] [address] and a low bicarb of 20 otherwise was unremarkable. The patient was ordered to get a dose of Phenergan 12.5 mg IV. The patient will be discharged home with a prescription for Zofran ODT 4 mg Q 6-8 hours p.r.n.. I did discuss cannabis hyperemesis syndrome with the patient and advised her to try to get help with her cannabis use disorder. Medical Decision Making Lab Data Result diagrams: 07/23/20 02:36 07/23/20 02:36 Labs: Lab Results 07/23/20 07/23/20 Range/Units 02:36 02:36 WBC 16.8 H (4.8-10.8) X10*3/uL RBC 4.50 (4.20-5.50) X10*6/uL Hgb 14.1 (12.0-16.0) g/dl Hct 41.9 (37-47) % MCV 93.1 (80-98) fL MCH 31.3 (27.0-33.0) pg MCHC 33.7 (31.0-35.0) g/dl RDW 12.1 (11.0-16.0) % Plt Count 352 (160-400) X10*3/uL MPV 9.4 (9.4-12.3) fL Immature Gran % (Auto) 0.4 (0.0-0.4) % Neut % (Auto) 89.0 H (45-73) % Lymph % (Auto) 7.9 L (20-40) % [place] % (Auto) 2.4 (2-11) % Eos % (Auto) 0.1 (0-4) % Baso % (Auto) 0.2 (0-2) % Lymph # (Auto) 1.3 (1.2-4.9) X10*3/uL [place] # (Auto) 0.4 (0.1-1.2) X10*3/uL Eos # (Auto) 0.0 (0.0-0.4) X10*3/uL Baso # (Auto) 0.0 (0.0-0.2) X10*3/uL Abs Immat Gran (auto) 0.06 H (0.00-0.03) X10*3/uL Absolute Neuts (auto) 14.9 H (2.0-8.3) X10*3/uL Absolute Nucleated RBC 0.000 (0.0-0.012) X10*3/uL Nucleated RBC % (auto) 0.0 (0.0-0.2) /100WBC Sodium 138 (135-145) mmol/L Potassium 4.0 (3.3-5.1) mmol/l Chloride 105 (96-108) mmol/L Carbon Dioxide 20 L (22-29) mmol/L Anion Gap 17 (12-20) BUN 10 (9-16) mg/dL Creatinine 0.72 (0.5-1.4) mg/dL Estim Creat Clear Calc 109.5 Estimated GFR > 60 Random Glucose 119 H D (60-115) mg/dL Calcium 9.2 D (8.4-10.2) mg/dL Total Bilirubin 0.4 (0.0-1.0) mg/dL Direct Bilirubin 0.2 (0.0-0.5) mg/dL AST 15 (5-31) U/L ALT 14 (0-31) U/L Alkaline Phosphatase 113 (39-117) U/L Total Protein 7.5 (6.5-8.0) g/dL Albumin 4.6 (3.5-5.0) g/dL Lipase 16 (8-78) U/L Discharge Plan Discharge Prescriptions: No Action ondansetron 4 mg tablet,disintegrating 4 mg PO Q8H PRN (Reason: nausea and vomiting) Qty: 20 RF: 0 promethazine 25 mg tablet 6.25 mg PO TID PRN (Reason: nausea and vomiting) Qty: 20 RF: 0 promethazine 25 mg tablet 25 mg PO TID PRN (Reason: nausea and vomiting) Qty: 10 RF: 0 diphenhydramine HCl [Benadryl Allergy] 25 mg tablet 25 mg PO Q6H PRN (Reason: nausea and vomiting) Qty: 10 RF: 0
[2020-07-23] MEDS: 0.9 % Sodium Chloride 1,000 ML 999 ML IV (02:38)
[2020-07-23 02:47] LABS: Basophils Percent Auto 0.2 % (0-2); Eosinophils Percent Auto 0.1 % (0-4); Hematocrit 41.9 % (37-47); Hemoglobin 14.1 g/dl (12.0-16.0); Imm Gran Abs Auto 0.06 X10*3/uL (0.00-0.03); Imm Gran Pct Auto 0.4 % (0.0-0.4); Lymphocytes Absolute Auto 1.3 X10*3/uL (1.2-4.9); Lymphocytes Percent Auto 7.9 % (20-40); MANUAL DIFF FLAG NO; Mean Corpuscular HGB Conc 33.7 g/dl (31.0-35.0); Mean Corpuscular Hemoglobin 31.3 pg (27.0-33.0); Mean Corpuscular Volume 93.1 fL (80-98); Mean Platelet Volume 9.4 fL (9.4-12.3); Monocytes Absolute Auto 0.4 X10*3/uL (0.1-1.2); Monocytes Percent Auto 2.4 % (2-11); Neutrophils Absolute Auto 14.9 X10*3/uL (2.0-8.3); Platelet Count 352 X10*3/uL (160-400); Red Cell Distribution Width 12.1 % (11.0-16.0); White Blood Count 16.8 X10*3/uL (4.8-10.8)
[2020-07-23] MEDS: Haloperidol Lactate 5 MG/ML VIAL 2.5 MG IVPUSH (02:47)
[2020-07-23] MEDS: diphenhydrAMINE HCL 50 MG/ML VIAL IVPUSH (02:47)
[2020-07-23 03:11] LABS: Alanine Aminotransferase 14 U/L (0-31); Albumin Level 4.6 g/dL (3.5-5.0); Alkaline Phosphatase 113 U/L (39-117); Anion Gap 17 (12-20); Aspartate Amino Transferase 15 U/L (5-31); Bilirubin Direct 0.2 mg/dL (0.0-0.5); Bilirubin Total 0.4 mg/dL (0.0-1.0); Blood Urea Nitrogen 10 mg/dL (9-16); Calcium 9.2 mg/dL (8.4-10.2); Carbon Dioxide 20 mmol/L (22-29); Chloride 105 mmol/L (96-108); Creatinine Clr Calc Pharmacy 109.5; Estimated Glomerular Filt Rate > 60; Glucose Random 119 mg/dL (60-115); Lipase 16 U/L (8-78); Sodium 138 mmol/L (135-145); Total Protein 7.5 g/dL (6.5-8.0)
[2020-07-23 04:49] VITALS: BP 148/94; PULSE 94; RESP 18; O2SAT 100
[2020-07-23 06:00] VITALS: BP 129/80; PULSE 76; RESP 16; O2SAT 100
--- NOTE | 2020-07-23 06:40 | PC.NURSE ---
pt is sleeping no vomiting no pain vitals stable.
== END 2020-07-23 08:39 | disposition home or self-care (01) ==
PROVIDERS: Emergency Provider Emergency Medicine Emergency Medical Services
DX: R11.15 Cyclical vomiting syndrome unrelated to migraine (principal); F12.10 Cannabis abuse, uncomplicated; E86.0 Dehydration
CPT/HCPCS: 36415; 80048; 80076; 83690; 85025; 96361; 96374; 96375; 99284; J1200

== ENCOUNTER 2020-07-24 17:54 | Emergency (ER) | payer OTHER, SELFPAY ==
[2020-07-24 18:17] VITALS: BP 124/66; PULSE 84; RESP 16; TEMP 37.1; O2SAT 99; BMI 31.1
--- NOTE | 2020-07-24 18:41 | PC.NURSE ---
pt left ed, made aware by registration staff.
== END 2020-07-24 18:55 | disposition left against medical advice (07) ==
PROVIDERS: Emergency Provider Emergency Medicine
DX: R10.9 Unspecified abdominal pain (principal)
CPT/HCPCS: 99282

== ENCOUNTER 2020-11-18 16:21 | Emergency (ER) | payer OTHER, SELFPAY ==
[2020-11-18 16:39] VITALS: BP 131/85; PULSE 91; RESP 16; TEMP 35.5; O2SAT 99; BMI 26.3
--- NOTE | 2020-11-18 17:04 | ED_ITS ---
HPI - Abdominal Pain General Chief Complaint: Abdominal Pain Stated Complaint: See Stated Time Seen by Provider: 11/18/20 16:24 Source: patient Mode of arrival: EMS Limitations: no limitations History of Present Illness HPI narrative: Patient comes emergency room complaining epigastric pain and nausea and vomiting. Patient states it started this morning. Patient denies drinking alcohol or use drugs. Patient has been seen multiple times in this emergency room for abdominal pain. Patient had a CT scan and ultrasound in May of 2020, both were normal. Patient denies diarrhea, no fever chills. Related Data Previous Rx's Medication Instructions Recorded ondansetron 4 mg PO Q8H PRN #20 tab 05/27/20 promethazine 6.25 mg PO TID PRN #20 tab 05/27/20 diphenhydramine HCl [Benadryl 25 mg PO Q6H PRN #10 tab 05/28/20 Allergy] promethazine 25 mg PO TID PRN #10 tab 05/28/20 ondansetron 4 mg PO Q6-8H PRN #14 tab 07/23/20 ondansetron HCl [Zofran] 4 mg PO Q6H PRN #10 tab 11/18/20 Allergies Allergy/AdvReac Type Severity Reaction Status Date / Time morphine [MORPHINE] AdvReac Mild ITCHING Verified 07/02/20 13:25 Review of Systems Review of Systems Constitutional : No Weight loss, No Fever, No Chills, No Night Sweats, No Fatig ue, No Malaise ENT/Mouth : No Hearing loss, No Ear Pain, No Nasal Congestion, No Sinus Pain, No Hoarseness, No sore throat, No Rhinorrhea, No Swallowing Difficulty Eyes: No Eye Pain, No Swelling, No Redness, No Foreign Body, No Discharge, No Vision Changes Cardiovascular : No Chest Pain, No SOB, No Dyspnea on Exertion, No Orthopnea, No Edema, No Palpitations Respiratory : No Cough, No Sputum, No Wheezing, No Smoke Exposure, No Dyspnea Gastrointestinal : Complaining of nausea and vomiting No Diarrhea, No Constipation, complaining of epigastric abdominal Pain, No Hematochezia, No Melena Genitourinary : no irregular bleeding, No Dysuria, No Urinary Frequency, No Hematuria, No Urinary Incontinence, No Urgency, No Flank Pain, No Urinary Flow Changes, No Hesitancy Musculoskeletal : No joint pain, No Myalgias, No Joint Swelling Skin : No Skin Lesions, No rash Neuro : No Weakness, No Numbness, No Paresthesias, No Loss of Consciousness, No Dizziness, No Headache Psych : No Anxiety/Panic, No Depression, No SI/HI/AH/VH, No Social Issues, Heme/Lymph: No Bruising, No Bleeding,No Lymphadenopathy Endocrine : No Polyuria, No Polydipsia, No Temperature Intolerance Physical Exam Vital Signs: Vital Signs: Last Vital Signs Temp 98.7 F 11/18/20 19:19 Pulse 99 11/18/20 19:19 Resp 18 11/18/20 19:19 BP 113/75 11/18/20 19:19 Pulse Ox 100 11/18/20 19:19 Body Mass Index 26.3 Appearance: Alert. Oriented X3. Screaming and crying Eyes: Pupils equal, round and reactive to light. ENT: Pharynx normal. Neck: Normal inspection. Neck supple. No lymph nodes noted. No crepitus CVS: Normal heart rate and rhythm. Pulses normal. Normal S1 and S2 Respiratory: No respiratory distress. Breath sounds normal. No Wheezing. No rales Abdomen: Soft , moderate epigastric pain to palpation, No rigidity. No distention Skin: Skin warm and dry. Normal skin color. Normal skin turgor. Extremities: No lower extremity edema. No lower extremity edema. No Lacerations. No Rash Neuro: Oriented X 3. No motor deficit. No sensory deficit. Moving all extermities. No slurred speech. Course Course Course Narrative: Patient states that she feels much better now, no longer vomiting, retching or complaining of abdominal pain. Patient states she feels well and would like to be discharged. Patient had an ultrasound and a CT scan done at May 2020, all within normal limits. Patient states that she has the same symptoms that she has had before. Patient denies using marijuana. Patient's white blood cell count of 13 is chronic, all other labs at baseline. MDM - Abdominal Pain Lab Data Result diagrams: 11/18/20 17:32 11/18/20 17:32 Labs: Lab Results 11/18/20 11/18/20 11/18/20 Range/Units 17:32 17:32 17:32 WBC 13.7 H (4.8-10.8) X10*3/uL RBC 4.62 (4.20-5.50) X10*6/uL Hgb 14.7 (12.0-16.0) g/dl Hct 42.8 (37-47) % MCV 92.6 (80-98) fL MCH 31.8 (27.0-33.0) pg MCHC 34.3 (31.0-35.0) g/dl RDW 11.8 (11.0-16.0) % Plt Count 364 (160-400) X10*3/uL MPV 9.4 (9.4-12.3) fL Immature Gran % (Auto) 0.4 (0.0-0.4) % Neut % (Auto) 90.5 H (45-73) % Lymph % (Auto) 7.4 L (20-40) % [place] % (Auto) 1.5 L (2-11) % Eos % (Auto) 0.1 (0-4) % Baso % (Auto) 0.1 (0-2) % Lymph # (Auto) 1.0 L (1.2-4.9) X10*3/uL [place] # (Auto) 0.2 (0.1-1.2) X10*3/uL Eos # (Auto) 0.0 (0.0-0.4) X10*3/uL Baso # (Auto) 0.0 (0.0-0.2) X10*3/uL Abs Immat Gran (auto) 0.06 H (0.00-0.03) X10*3/uL Absolute Neuts (auto) 12.4 H (2.0-8.3) X10*3/uL Absolute Nucleated RBC 0.000 (0.0-0.012) X10*3/uL Nucleated RBC % (auto) 0.0 (0.0-0.2) /100WBC Smear Tech's Comments VERIFIED Sodium 140 (135-145) mmol/L Potassium 4.3 (3.3-5.1) mmol/L Chloride 105 (96-108) mmol/L Carbon Dioxide 21 L (22-29) mmol/L Anion Gap 18 (12-20) BUN 9 (9-16) mg/dL Creatinine 0.77 (0.5-1.4) mg/dL Estim Creat Clear Calc 97.3 Estimated GFR > 60 Random Glucose 117 H (60-115) mg/dL Calcium 10.3 H D (8.4-10.2) mg/dL Total Bilirubin 0.4 (0.0-1.0) mg/dL Direct Bilirubin 0.3 (0.0-0.5) mg/dL AST 12 (5-31) U/L ALT 13 (0-31) U/L Alkaline Phosphatase 111 (39-117) U/L Total Protein 7.8 (6.5-8.0) g/dL Albumin 4.9 (3.5-5.0) g/dL Lipase 18 (8-78) U/L Ethyl Alcohol < 10 mg/dL Discharge Plan Discharge Clinical Impression: Abdominal pain, Vomiting Patient Disposition: Home, Self-Care Instructions: Acute Nausea and Vomiting (ED), Abdominal Pain (ED) Additional Instructions: Please follow-up with your primary care physician tomorrow. If you have any worsening or new symptoms, please return to the emergency room or call 911 Prescriptions: New ondansetron HCl [Zofran] 4 mg tablet 4 mg PO Q6H PRN (Reason: nausea and vomiting) Qty: 10 RF: 0 No Action ondansetron 4 mg tablet,disintegrating 4 mg PO Q8H PRN (Reason: nausea and vomiting) Qty: 20 RF: 0 promethazine 25 mg tablet 6.25 mg PO TID PRN (Reason: nausea and vomiting) Qty: 20 RF: 0 promethazine 25 mg tablet 25 mg PO TID PRN (Reason: nausea and vomiting) Qty: 10 RF: 0 diphenhydramine HCl [Benadryl Allergy] 25 mg tablet 25 mg PO Q6H PRN (Reason: nausea and vomiting) Qty: 10 RF: 0 ondansetron 4 mg tablet,disintegrating 4 mg PO Q6-8H PRN (Reason: nausea and vomiting) Qty: 14 RF: 0 PMFSH Past Medical History Medical History Heavy menses Menses painful Social History Social History Alcohol intake: never Smoking Status: Current every day smoker Use of substances other than those prescribed or required for medical reasons: No Substance Use Type: Marijuana Advance Directives: No Advance Directives Information Provided: Yes Patient : No
[2020-11-18] MEDS: Famotidine/PF 20 MG/2 ML VIAL IVPUSH (17:38)
[2020-11-18] MEDS: ondansetron HCL 4 MG/2 ML VIAL IVPUSH (17:38)
[2020-11-18] MEDS: 0.9 % Sodium Chloride 1,000 ML 999 ML IVCONT (17:38)
[2020-11-18 17:45] LABS: Basophils Percent Auto 0.1 % (0-2); Eosinophils Percent Auto 0.1 % (0-4); Hematocrit 42.8 % (37-47); Hemoglobin 14.7 g/dl (12.0-16.0); Imm Gran Abs Auto 0.06 X10*3/uL (0.00-0.03); Imm Gran Pct Auto 0.4 % (0.0-0.4); Lymphocytes Percent Auto 7.4 % (20-40); MANUAL DIFF FLAG SCAN; Mean Corpuscular HGB Conc 34.3 g/dl (31.0-35.0); Mean Corpuscular Hemoglobin 31.8 pg (27.0-33.0); Mean Corpuscular Volume 92.6 fL (80-98); Mean Platelet Volume 9.4 fL (9.4-12.3); Monocytes Absolute Auto 0.2 X10*3/uL (0.1-1.2); Monocytes Percent Auto 1.5 % (2-11); Neutrophils Absolute Auto 12.4 X10*3/uL (2.0-8.3); Neutrophils Percent Auto 90.5 % (45-73); Platelet Count 364 X10*3/uL (160-400); Red Blood Count 4.62 X10*6/uL (4.20-5.50); Red Cell Distribution Width 11.8 % (11.0-16.0); SCAN SMEAR FLAG 1; White Blood Count 13.7 X10*3/uL (4.8-10.8)
[2020-11-18 17:58] LABS: Ethanol < 10 mg/dL
[2020-11-18 18:03] LABS: Alanine Aminotransferase 13 U/L (0-31); Albumin Level 4.9 g/dL (3.5-5.0); Alkaline Phosphatase 111 U/L (39-117); Anion Gap 18 (12-20); Aspartate Amino Transferase 12 U/L (5-31); Bilirubin Direct 0.3 mg/dL (0.0-0.5); Bilirubin Total 0.4 mg/dL (0.0-1.0); Blood Urea Nitrogen 9 mg/dL (9-16); Calcium 10.3 mg/dL (8.4-10.2); Carbon Dioxide 21 mmol/L (22-29); Chloride 105 mmol/L (96-108); Creatinine Clr Calc Pharmacy 97.3; Estimated Glomerular Filt Rate > 60; Glucose Random 117 mg/dL (60-115); Lipase 18 U/L (8-78); Potassium 4.3 mmol/L (3.3-5.1); Sodium 140 mmol/L (135-145); Total Protein 7.8 g/dL (6.5-8.0)
[2020-11-18 18:09] LABS: SLIDE REVIEW VERIFIED
[2020-11-18 18:31] VITALS: RESP 22
[2020-11-18] MEDS: Morphine Sulfate 4 MG/ML CARTRIDGE IVPUSH (18:31)
[2020-11-18] MEDS: diphenhydrAMINE HCL 50 MG/ML VIAL IVPUSH (18:31)
[2020-11-18 18:33] VITALS: BP 134/67; PULSE 76; RESP 16; TEMP 37.1; O2SAT 95
--- NOTE | 2020-11-18 18:51 | PC.NURSE ---
Pt dry heaving, spitting up. Pt medicated per sep and is now resting /sleeping in bed. Given urine cup, aware of need for urine sample.
[2020-11-18 19:19] VITALS: BP 113/75; PULSE 99; RESP 18; TEMP 37.1; O2SAT 100
--- NOTE | 2020-11-18 19:30 | PC.NURSE ---
Pt asking to leave for family emergency- left prior to receiving paperwork
== END 2020-11-18 19:50 | disposition home or self-care (01) ==
PROVIDERS: Emergency Provider Emergency Medicine
DX: R10.13 Epigastric pain (principal); R11.10 Vomiting, unspecified; Z79.899 Other long term (current) drug therapy; F17.200 Nicotine dependence, unspecified, uncomplicated; Z71.6 Tobacco abuse counseling
CPT/HCPCS: 36415; 80048; 80076; 80320; 83690; 85025; 96365; 96375; 99284; J1200; J2270; J2405

== ENCOUNTER 2021-03-04 07:10 | Emergency (ER) | payer OTHER, SELFPAY ==
[2021-03-04 07:40] VITALS: BP 133/92; PULSE 99; RESP 18; O2SAT 100; BMI 27.4
--- NOTE | 2021-03-04 07:55 | ED_ITS ---
HPI - Abdominal Pain General Chief Complaint: Abdominal Pain Stated Complaint: abd pain Time Seen by Provider: 03/04/21 07:55 Source: patient Mode of arrival: ambulatory Limitations: no limitations History of Present Illness HPI narrative: Patient smokes marijuana has dysmenorrhea which is going for long time comes here was lower abdominal pain started on new. Yesterday been to hospital multiple times for same head CT scan ultrasound done negative also vomited 4-5 times no fever no chills no urinary complaints Related Data Previous Rx's Medication Instructions Recorded ondansetron 4 mg disintegrating 4 mg PO Q8H PRN #20 tab 05/27/20 tablet promethazine 25 mg tablet 6.25 mg PO TID PRN #20 tab 05/27/20 diphenhydramine HCl 25 mg tablet 25 mg PO Q6H PRN #10 tab 05/28/20 (Benadryl Allergy) promethazine 25 mg tablet 25 mg PO TID PRN #10 tab 05/28/20 ondansetron 4 mg disintegrating 4 mg PO Q6-8H PRN #14 tab 07/23/20 tablet ondansetron HCl 4 mg tablet 4 mg PO Q6H PRN #10 tab 11/18/20 (Zofran) ibuprofen 600 mg tablet 600 mg PO Q6H PRN #20 tab 03/04/21 Allergies Allergy/AdvReac Type Severity Reaction Status Date / Time morphine [MORPHINE] AdvReac Mild ITCHING Verified 07/02/20 13:25 Review of Systems Review of Systems Yes all other systems are reviewed and are negative Physical Exam Vital Signs: Vital Signs: Last Vital Signs Pulse 99 03/04/21 07:40 Resp 18 03/04/21 07:40 BP 133/92 H 03/04/21 07:40 Pulse Ox 100 03/04/21 07:40 Body Mass Index 27.4 Const: Other: Very dramatic shouting in the hallway relaxed when talking on the phone no active vomiting ambulatory General: well developed Orientation/consciousness: patient oriented x3 HENMT: Head: Yes normocephalic and Yes atraumatic Eyes: General: appearance normal, both eyes and all related structures Resp: Effort & Inspection: normal respiratory effort Auscultation: clear to auscultation bilaterally Cardio: Palpation: normal PMI Rate: regular rate Rhythm: regular rhythm Heart sounds: S1 normal heart sound present and S2 normal heart sound present GI: Inspection: Yes normal to inspection Palpation (GI): Soft to palpation and Tenderness to palpation present (GI) suprapubicly : General: Yes no CVA tenderness Back/Spine/Pelvis: Back: no CVA tenderness Thoracic/Lumbar Spine: No thoracic spinal tenderness and No lumbar spinal tenderness Neuro: General: patient oriented x3 and no focal motor deficits Discharge Plan Discharge Clinical Impression: Dysmenorrhea Patient Disposition: Home, Self-Care Instructions: Dysmenorrhea (ED) Additional Instructions: Take ibuprofen for pain follow-up with petroleum plant operator Prescriptions: New ibuprofen 600 mg tablet 600 mg PO Q6H PRN (Reason: pain) Qty: 20 RF: 0 No Action ondansetron 4 mg tablet,disintegrating 4 mg PO Q8H PRN (Reason: nausea and vomiting) Qty: 20 RF: 0 promethazine 25 mg tablet 6.25 mg PO TID PRN (Reason: nausea and vomiting) Qty: 20 RF: 0 promethazine 25 mg tablet 25 mg PO TID PRN (Reason: nausea and vomiting) Qty: 10 RF: 0 diphenhydramine HCl [Benadryl Allergy] 25 mg tablet 25 mg PO Q6H PRN (Reason: nausea and vomiting) Qty: 10 RF: 0 ondansetron 4 mg tablet,disintegrating 4 mg PO Q6-8H PRN (Reason: nausea and vomiting) Qty: 14 RF: 0 ondansetron HCl [Zofran] 4 mg tablet 4 mg PO Q6H PRN (Reason: nausea and vomiting) Qty: 10 RF: 0 Interventions: ED Discharge Assessment Last Done: 03/04/21 08:52 Discharge Date/Time: 03/04/21 08:54 [facility] Past Medical History Medical History Heavy menses Menses painful Social History Social History Alcohol intake: never Substance Use Type: Marijuana Advance Directives: No Advance Directives Information Provided: No
[2021-03-04] MEDS: Ketorolac Tromethamine 60 MG/2 ML VIAL IM (08:16)
[2021-03-04] MEDS: LORazepam 2 MG/ML VIAL IM (08:16)
== END 2021-03-04 08:54 | disposition home or self-care (01) ==
PROVIDERS: Emergency Provider Internal Medicine
DX: N94.6 Dysmenorrhea, unspecified (principal); F12.90 Cannabis use, unspecified, uncomplicated
CPT/HCPCS: 96374; 96375; 99284; J1885; J2060

== ENCOUNTER 2021-03-10 15:56 | Emergency (ER) | payer OTHER, SELFPAY ==
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
[2021-03-10 16:06] VITALS: BP 115/76; PULSE 80; RESP 16; TEMP 36.7; O2SAT 98; BMI 25.6
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
== END 2021-03-10 17:36 | disposition home or self-care (01) ==
PROVIDERS: Emergency Provider Emergency Medicine
DX: S80.01XA Contusion of right knee, initial encounter (principal); V43.62XA Car passenger injured in collision with other type car in traffic accident, initial encounter; Y93.89 Activity, other specified; Y92.414 Local residential or business street as the place of occurrence of the external cause; Y99.9 Unspecified external cause status
CPT/HCPCS: 73564; 99283

== ENCOUNTER 2021-09-16 18:59 | Emergency (ER) | payer OTHER, SELFPAY ==
[2021-09-16 19:24] VITALS: BP 126/71; PULSE 91; RESP 16; O2SAT 99; BMI 25.6
[2021-09-16 19:50] LABS: MANUAL DIFF FLAG NO
[2021-09-16 19:51] LABS: Basophils Percent Auto 0.2 % (0-2); Hemoglobin 13.5 g/dl (12.0-16.0); Imm Gran Abs Auto 0.06 X10*3/uL (0.00-0.03); Imm Gran Pct Auto 0.4 % (0.0-0.4); Lymphocytes Absolute Auto 1.5 X10*3/uL (1.2-4.9); Lymphocytes Percent Auto 9.5 % (20-40); Mean Corpuscular HGB Conc 34.6 g/dl (31.0-35.0); Mean Corpuscular Hemoglobin 31.8 pg (27.0-33.0); Monocytes Absolute Auto 0.3 X10*3/uL (0.1-1.2); Neutrophils Absolute Auto 13.9 x10*3/uL (2.0-8.3); Neutrophils Percent Auto 87.9 % (45-73); Platelet Count 353 X10*3/uL (160-400); Red Blood Count 4.24 X10*6/uL (4.20-5.50); Red Cell Distribution Width 11.8 % (11.0-16.0); White Blood Count 15.8 X10*3/uL (4.8-10.8)
[2021-09-16 19:52] VITALS: BP 130/85; PULSE 75; RESP 15; TEMP 36.8; O2SAT 100
--- NOTE | 2021-09-16 20:08 | ED_ITS ---
HPI - Abdominal Pain General Chief Complaint: Abdominal Pain Stated Complaint: vomiting Time Seen by Provider: 09/16/21 19:46 Source: patient Mode of arrival: ambulatory Limitations: no limitations History of Present Illness HPI narrative: 26-year-old female who presents emergency department for evaluation of abdominal pain and vomiting. The patient states that her abdominal pain started at 04:00 hours this morning. She states that the pain came on gradually and then became severe. She describes the pain as a constant, sharp pain and she points to her epigastric area when asked to localize the pain the pain is 10/10. The patient has had similar pain in the past has been seen here in the emergency department, she has had multiple negative CT scans and she has been diagnosed with cyclic vomiting syndrome most likely secondary to marijuana use. The patient states she went to [facility] this morning, she was given medications and discharged home. She states that she did feel better when she left [facility] but her pain, nausea and vomiting returned so she came to [facility] for evaluation. MD elicited complaint: abdominal pain Pertinent past history: other (Cyclic vomiting syndrome) Onset (ago): day(s) (1) Pain Consistency: constant Location: epigastric Severity: severe Pain scale (0-10): 10 Quality: sharp Radiation: epigastric Migration to: no migration Exacerbating factors: nothing Associated symptoms: nausea and vomiting Related Data Previous Rx's Medication Instructions Recorded ondansetron 4 mg disintegrating 4 mg PO Q8H PRN #20 tab 05/27/20 tablet promethazine 25 mg tablet 6.25 mg PO TID PRN #20 tab 05/27/20 diphenhydramine HCl 25 mg tablet 25 mg PO Q6H PRN #10 tab 05/28/20 (Benadryl Allergy) promethazine 25 mg tablet 25 mg PO TID PRN #10 tab 05/28/20 ondansetron 4 mg disintegrating 4 mg PO Q6-8H PRN #14 tab 07/23/20 tablet ondansetron HCl 4 mg tablet 4 mg PO Q6H PRN #10 tab 11/18/20 (Zofran) ibuprofen 600 mg tablet 600 mg PO Q6H PRN #20 tab 03/04/21 cyclobenzaprine 10 mg tablet 10 mg PO TID PRN #10 tab 03/10/21 Allergies Allergy/AdvReac Type Severity Reaction Status Date / Time morphine [MORPHINE] AdvReac Mild ITCHING Verified 07/02/20 13:25 Review of Systems Review of Systems Yes all other systems are reviewed and are negative [facility] Past Medical History Medical History Heavy menses Menses painful Social History Social History Alcohol intake: never Substance Use Type: Marijuana Advance Directives: No Patient : No Physical Exam ED Vital Signs: Vital Signs - 24 hr 09/16/21 19:24 09/16/21 19:52 Temperature 98.2 F Pulse Rate 91 75 Respiratory Rate 16 15 Blood Pressure 126/71 130/85 Pulse Oximetry 99 100 BMI result Body Mass Index 25.6 Const Other: Patient is somnolent but will wake up and answer questions but quickly falls back asleep. She does not appear to be in distress Orientation/consciousness: oriented to person and oriented to place HENDC Head: Yes normal to inspection, Yes normocephalic and Yes atraumatic Ears: external ears normal General nose exam: Normal external nose present Face and sinus: Yes normal facial exam Mouth: Normal oral and palatal mucosa present Throat: Yes posterior oropharynx normal Eyes General: appearance normal, both eyes and all related structures Pupils: Equal, round and reactive pupils present Neck Neck: Yes normal visual inspection, Yes no lymphadenopathy, Yes trachea midline and Yes supple Chest Chest palpation & inspection: normal inspection of the chest and normal palpation of entire chest wall Resp Effort & Inspection: normal respiratory effort and able to speak in complete sentences Auscultation: clear to auscultation bilaterally Cardio Rate: regular rate Rhythm: regular rhythm Heart sounds: S1 normal heart sound present, S2 normal heart sound present and no murmurs GI Inspection: Yes normal to inspection Palpation (GI): Soft to palpation, Tenderness to palpation present (GI) in the epigastrum (Moderate) and no guarding Auscultation: normal bowel sounds General: Yes no CVA tenderness Back/Spine/Pelvis Back: no CVA tenderness Skin General skin exam: no rashes or lesions noted Neuro General: oriented to person and oriented to place Cranial nerves: Yes CN's II-XII intact bilaterally and Yes Equal, round and reactive pupils present Cognition (Neuro): normal cognition Motor exam (neuro): 5/5 motor strength present throughout Extrem General: Yes normal to inspection Psych Other: Somnolent Speech and movement: Normal speech and movement present Affect: normal affect Attitude: cooperative Course Course Course Narrative: 26-year-old female who presents emergency department for evaluation of abdominal pain, nausea and vomiting which began at 04:00 hours this morning. The patient was seen at [facility], treated with medications and discharged home. She states she did feel better when she left [facility] but then her symptoms returned and she came to our facility. The patient has been seen multiple times in the past for cyclic vomiting syndrome secondary to marijuana use disorder. Patient's vital signs were normal. On examination she does appear to be somnolent but does wake up to answer questions but quickly falls back asleep. She did have midepigastric tenderness. My impression is that the patient has cyclic vomiting syndrome secondary to marijuana use. Laboratory evaluation was ordered. Patient was ordered to get normal saline IV x1 L, Toradol 15 mg IV and droperidol 1.25 mg IV. 2209: Laboratory evaluation: WBC elevated 15,800. The patient did get significant improvement with the above treatment. The patient will be discharged home. MDM - Abdominal Pain Lab Data Result diagrams: 09/16/21 19:38 09/16/21 19:38 Labs: Lab Results 09/16/21 09/16/21 Range/Units 19:38 19:38 WBC 15.8 H (4.8-10.8) X10*3/uL RBC 4.24 (4.20-5.50) X10*6/uL Hgb 13.5 (12.0-16.0) g/dl Hct 39.0 (37.0-47.0) % MCV 92.0 (80.0-98.0) fL MCH 31.8 (27.0-33.0) pg MCHC 34.6 (31.0-35.0) g/dl RDW 11.8 (11.0-16.0) % Plt Count 353 (160-400) X10*3/uL MPV 9.0 L (9.4-12.3) fL Immature Gran % (Auto) 0.4 (0.0-0.4) % Neut % (Auto) 87.9 H (45-73) % Lymph % (Auto) 9.5 L (20-40) % [place] % (Auto) 2.0 (2-11) % Eos % (Auto) 0.0 (0-4) % Baso % (Auto) 0.2 (0-2) % Lymph # (Auto) 1.5 (1.2-4.9) X10*3/uL [place] # (Auto) 0.3 (0.1-1.2) X10*3/uL Eos # (Auto) 0.0 (0.0-0.4) X10*3/uL Baso # (Auto) 0.0 (0.0-0.2) X10*3/uL Abs Immat Gran (auto) 0.06 H (0.00-0.03) X10*3/uL Absolute Neuts (auto) 13.9 H (2.0-8.3) x10*3/uL Absolute Nucleated RBC 0.000 (0.0-0.012) X10*3/uL Nucleated RBC % (auto) 0.0 (0.0-0.2) /100WBC Sodium 140 (135-145) mmol/L Potassium 3.6 (3.3-5.1) mmol/L Chloride 106 (96-108) mmol/L Carbon Dioxide 21 L (22-29) mmol/L Anion Gap 17 (12-20) BUN 10 (9-16) mg/dL Creatinine 0.75 (0.5-1.4) mg/dL Estim Creat Clear Calc 97.8 Estimated GFR > 60 Random Glucose 129 H (60-115) mg/dL Calcium 9.7 (8.4-10.2) mg/dL Discharge Plan Discharge Clinical Impression: Cyclic vomiting syndrome, Abdominal pain, Acute dehydration Patient Disposition: Home, Self-Care Instructions: Cyclic Vomiting Syndrome (ED) Additional Instructions: Your laboratory evaluation was unremarkable. Your treated with droperidol 1.25 mg IV and Toradol 15 mg IV. You also received a L of normal saline IV. Your recurrent vomiting and abdominal pain may be related to your marijuana use. You should stop smoking marijuana. Follow-up with your doctor in 2 days. Please return to the emergency department if your symptoms get worse or if you develop any symptoms that are concerning to you. Prescriptions: No Action ondansetron 4 mg tablet,disintegrating 4 mg PO Q8H PRN (Reason: nausea and vomiting) Qty: 20 0RF promethazine 25 mg tablet 6.25 mg PO TID PRN (Reason: nausea and vomiting) Qty: 20 0RF Rx Instructions: 3 doses during day; last dose no later than 4 hr before bedtime promethazine 25 mg tablet 25 mg PO TID PRN (Reason: nausea and vomiting) Qty: 10 0RF diphenhydramine HCl [Benadryl Allergy] 25 mg tablet 25 mg PO Q6H PRN (Reason: nausea and vomiting) Qty: 10 0RF ondansetron 4 mg tablet,disintegrating 4 mg PO Q6-8H PRN (Reason: nausea and vomiting) Qty: 14 0RF ondansetron HCl [Zofran] 4 mg tablet 4 mg PO Q6H PRN (Reason: nausea and vomiting) Qty: 10 0RF ibuprofen 600 mg tablet 600 mg PO Q6H PRN (Reason: pain) Qty: 20 0RF cyclobenzaprine 10 mg tablet 10 mg PO TID PRN (Reason: muscle spasm) Qty: 10 0RF
[2021-09-16] MEDS: Ketorolac Tromethamine 15 MG/ML VIAL IVPUSH (20:17)
[2021-09-16] MEDS: 0.9 % Sodium Chloride 1,000 ML 999 ML IV (20:17)
[2021-09-16 20:37] LABS: Anion Gap 17 (12-20); Blood Urea Nitrogen 10 mg/dL (9-16); Calcium 9.7 mg/dL (8.4-10.2); Carbon Dioxide 21 mmol/L (22-29); Chloride 106 mmol/L (96-108); Creatinine Clr Calc Pharmacy 97.8; Estimated Glomerular Filt Rate > 60; Glucose Random 129 mg/dL (60-115); Potassium 3.6 mmol/L (3.3-5.1); Sodium 140 mmol/L (135-145)
== END 2021-09-16 22:23 | disposition home or self-care (01) ==
PROVIDERS: Emergency Provider Emergency Medicine Emergency Medical Services
DX: R11.15 Cyclical vomiting syndrome unrelated to migraine (principal); E86.0 Dehydration; R10.13 Epigastric pain; R40.0 Somnolence; F12.90 Cannabis use, unspecified, uncomplicated
CPT/HCPCS: 36415; 80048; 85025; 96361; 96374; 96375; 99284; J1790; J1885

== ENCOUNTER 2022-03-24 09:54 | Emergency (ER) | payer OTHER, SELFPAY ==
[2022-03-24 10:01] VITALS: BP 119/80; PULSE 81; RESP 19; TEMP 36.6; O2SAT 100; BMI 23.4
== END 2022-03-24 14:03 | disposition left against medical advice (07) ==
PROVIDERS: Emergency Provider Emergency Medicine
DX: R10.30 Lower abdominal pain, unspecified (principal); R11.2 Nausea with vomiting, unspecified
CPT/HCPCS: 99281

== ENCOUNTER 2022-05-18 10:14 | Observation (INO) | payer MEDICAID, SELFPAY ==
--- NOTE | ~2022-05-18 | CT_ITS ---
EXAMINATION: CT ABDOMEN AND PELVIS WITH CONTRAST CLINICAL INFORMATION: Right lower quadrant pain COMPARISON: 05/27/2020 TECHNIQUE: Multidetector volumetric images were obtained from the superior aspect of the liver through the pubic symphysis following administration 85 mL of Omnipaque 350 intravenous contrast. Sagittal and coronal reformatted images were obtained on the technologist's workstation. Oral contrast: No This CT examination was performed using dose optimization techniques as appropriate, variously including the following: *Automated exposure control *Adjustment of mA and/or kV according to patient size (this includes techniques or standardized protocols for targeted exams where dose is matched to indication/reason for exam; i.e. extremities or head) *Use of iterative reconstruction technique DLP: 391 mGy-cm FINDINGS: LUNG BASES: The visualized lung bases are unremarkable. LIVER, GALLBLADDER, AND BILIARY TREE: The liver is normal in size, shape, and attenuation. No focal hepatic lesion or biliary ductal dilatation is present. Focal fatty infiltration along the falciform. The gallbladder is unremarkable with no evidence of radiopaque gallstones, gallbladder wall thickening, or obvious pericholecystic inflammatory changes. PANCREAS: Unremarkable. SPLEEN: Unremarkable. ADRENAL GLANDS: Unremarkable. KIDNEYS AND URETERS: The kidneys are normal in size, shape, and attenuation. No hydronephrosis, hydroureter, or calculi seen. No perinephric stranding. BLADDER: Unremarkable. GASTROINTESTINAL TRACT: Tiny hiatal hernia. The stomach is otherwise unremarkable. Normal caliber small bowel. No obstruction. Normal appendix. There is wall thickening and mild adjacent inflammation involving the ascending colon through the hepatic flexure. No free air. No significant free fluid. ABDOMINAL WALL: No significant hernia is appreciated. LYMPH NODES: Normal. VASCULAR: Unremarkable. PELVIC VISCERA: The uterus and adnexa are unremarkable. OSSEOUS STRUCTURES: Unremarkable. CT/CT abdomen pelvis w IV con IMPRESSION: Colitis involving the ascending colon through the hepatic flexure. Normal appendix. Fleischner guidelines were followed.
[2022-05-18 10:17] VITALS: BP 140/85; PULSE 85; RESP 22; TEMP 37.8; O2SAT 98; BMI 25.6
--- NOTE | 2022-05-18 10:26 | ED.ABDPAIN ---
HPI - Abdominal Pain General Chief Complaint: Abdominal Pain Stated Complaint: abdominal pain Time Seen by Provider: 05/18/22 10:24 Source: patient, old records reviewed and american sign language interpreter Mode of arrival: ambulatory Limitations: other (agitated, vomiting) History of Present Illness HPI narrative: 27 yo female who we've seen in the past with a PMH of cyclical vomiting, THC use, painful menses - hx of CT scan and abdominal US with negative workup. Comes to the ED yelling out, agitated, vomiting notes that last night had some mild RLQ pain that got worse in the middle of the night and now pain is much worse. She began vomiting this morning. Still smokes THC. In the middle of her cycle. MD elicited complaint: abdominal pain Pertinent past history: other (cyclical vomiting) Onset (ago): day(s) (several) Pain Consistency: constant Location: RLQ Severity: severe Quality: stabbing Radiation: none Migration to: no migration Exacerbating factors: vomiting and movement Relieving factors: nothing Associated symptoms: nausea, vomiting and fever (101 states it was 108 at home and went away on its own - I told her this was very unlikely) Related Data Previous Rx's Medication Instructions Recorded ondansetron 4 mg disintegrating 4 mg PO Q8H PRN nausea and 05/27/20 tablet vomiting #20 tabs promethazine 25 mg tablet 6.25 mg PO TID PRN nausea and 05/27/20 vomiting #20 tabs diphenhydramine HCl 25 mg tablet 25 mg PO Q6H PRN nausea and 05/28/20 (Benadryl Allergy) vomiting #10 tabs promethazine 25 mg tablet 25 mg PO TID PRN nausea and 05/28/20 vomiting #10 tabs ondansetron 4 mg disintegrating 4 mg PO Q6-8H PRN nausea and 07/23/20 tablet vomiting #14 tabs ondansetron HCl 4 mg tablet 4 mg PO Q6H PRN nausea and 11/18/20 (Zofran) vomiting #10 tabs ibuprofen 600 mg tablet 600 mg PO Q6H PRN pain #20 tabs 03/04/21 cyclobenzaprine 10 mg tablet 10 mg PO TID PRN muscle spasm #10 03/10/21 tabs Allergies Allergy/AdvReac Type Severity Reaction Status Date / Time morphine [MORPHINE] AdvReac Mild ITCHING Verified 12/19/20 13:25 Review of Systems Review of Systems Constitutional : No Weight loss, pos Fever, pos Chills ENT/Mouth : No sore throat, No Rhinorrhea Eyes: No Swelling, No Redness Cardiovascular : No Chest Pain, No SOB, NoEdema Respiratory : No Cough, No Sputum, No Wheezing Gastrointestinal : Positive Nausea, Positive Vomiting, no Diarrhea, positive abdominal Pain, No Hematochezia, No Melena Genitourinary : No Dysuria, No Urinary Frequency, No Hematuria, No Urgency Musculoskeletal : No joint pain, No Myalgias, No Joint Swelling Skin : No Skin Lesions, No rash Neuro : No Weakness, No Numbness, No Dizziness, No Headache Psych : No Anxiety/Panic, No Depression Heme/Lymph: No Bruising, No Lymphadenopathy Endocrine : No Polyuria, No Polydipsia All other systems reviewed and are negative. [facility] Past Medical History Attestation statement: The following information was validated with the patient. Source: old records reviewed Medical History Cyclical vomiting Heavy menses Menses painful Social History Social History (Updated 05/18/22 @ 10:29 by Ashley Parks DO) Alcohol intake: never Patient Tobacco Use Status: Tobacco use Unknown Substance Use Type: Marijuana Advance Directives: No Advance Directives Information Provided: Yes Physical Exam ED Vital Signs: Vital Signs - 24 hr 05/18/22 10:17 05/18/22 11:06 Temperature 100.0 F Pulse Rate 85 Respiratory Rate 22 H 20 Blood Pressure 140/85 H Pulse Oximetry 98 Oxygen Delivery Method Room Air BMI result Body Mass Index 25.6 Appearance: Alert. Oriented X3. moderate acute distress. patient if flailing running around the room, yelling, opening and shutting the curtain, very dramatic gestures Eyes: Pupils equal, round and reactive to light. ENT: Pharynx normal. Neck: Normal inspection. Neck supple. CVS: Normal heart rate and rhythm. Pulses normal. Respiratory: No respiratory distress. Breath sounds normal. Abdomen: Soft and moderate RLQ ttp no rebound or guarding Skin: Skin warm and dry. Normal skin color. Normal skin turgor. Extremities: No lower extremity edema. No calf ttp Neuro: Oriented X 3. No motor deficit. No sensory deficit. Course Course Course Narrative: still yelling out loud even after haldol, moving around room IV versed ordered. CT scan as colitis, negative lactic acid, no diarrhea, no recent abx, still vomiting - seems unusual for infectious colitis. negative lactic acid - ischemic colitis seems unlikely cannot tolerate PO will admit at this time, states she does not have an allergy to morphine MDM - Abdominal Pain MDM Narrative Medical decision making narrative: 27 yo female who we've seen in the past with a PMH of cyclical vomiting, THC use, painful menses - hx of CT scan and abdominal US with negative workup - presents again with same complaint but now reports a fever at home which is atypical for her. At this time labs, IVF, anti-emetics, toradol. CT scan for appendicitis ordered. Dispo per result and findings. Lab Data Result diagrams: 05/18/22 10:51 05/18/22 10:51 Labs: Lab Results 05/18/22 05/18/22 05/18/22 Range/Units 10:50 10:51 10:51 WBC 11.6 H (4.8-10.8) X10*3/uL RBC 4.26 (4.20-5.50) X10*6/uL Hgb 13.6 (12.0-16.0) g/dl Hct 40.0 (37.0-47.0) % MCV 93.9 (80.0-98.0) fL MCH 31.9 (27.0-33.0) pg MCHC 34.0 (31.0-35.0) g/dl RDW 11.9 (11.0-16.0) % Plt Count 302 (160-400) X10*3/uL MPV 9.0 L (9.4-12.3) fL Immature Gran % (Auto) 0.3 (0.0-0.4) % Neut % (Auto) 78.0 H (45-73) % Lymph % (Auto) 16.8 L (20-40) % [place] % (Auto) 4.3 (2-11) % Eos % (Auto) 0.3 (0-4) % Baso % (Auto) 0.3 (0-2) % Lymph # (Auto) 2.0 (1.2-4.9) X10*3/uL [place] # (Auto) 0.5 (0.1-1.2) X10*3/uL Eos # (Auto) 0.0 (0.0-0.4) X10*3/uL Baso # (Auto) 0.0 (0.0-0.2) X10*3/uL Abs Immat Gran (auto) 0.04 H (0.00-0.03) X10*3/uL Absolute Neuts (auto) 9.1 H (2.0-8.3) x10*3/uL Absolute Nucleated RBC 0.000 (0.0-0.012) X10*3/uL Nucleated RBC % (auto) 0.0 (0.0-0.2) /100WBC Sodium 140 (135-145) mmol/L Potassium 4.1 (3.3-5.1) mmol/L Chloride 108 (96-108) mmol/L Carbon Dioxide 20 L (22-29) mmol/L Anion Gap 16 (12-20) BUN 7 L (9-16) mg/dL Creatinine 0.76 (0.5-1.4) mg/dL Estim Creat Clear Calc 95.6 Estimated GFR > 60 Random Glucose 107 (60-115) mg/dL Lactic Acid 1.5 (0.5-2.0) mmol/L Calcium 9.5 (8.4-10.2) mg/dL Magnesium 1.9 (1.6-2.6) mg/dL Total Bilirubin 0.4 (0.0-1.0) mg/dL Direct Bilirubin < 0.2 (0.0-0.5) mg/dL AST 18 D (5-31) U/L ALT 14 (0-31) U/L Alkaline Phosphatase 81 D (39-117) U/L Total Protein 7.2 (6.5-8.0) g/dL Albumin 4.5 (3.5-5.0) g/dL Lipase 32 (8-78) U/L Beta HCG, Quant mIU/mL Ethyl Alcohol mg/dL COVID-19 ([facility]) (Negative) COVID-19 Clin Com Influenza Type A ([facility]) (Negative) Influenza Type B ([facility]) (Negative) Influenza A & B Note 05/18/22 05/18/22 05/18/22 Range/Units 10:51 10:51 10:51 WBC (4.8-10.8) X10*3/uL RBC (4.20-5.50) X10*6/uL Hgb (12.0-16.0) g/dl Hct (37.0-47.0) % MCV (80.0-98.0) fL MCH (27.0-33.0) pg MCHC (31.0-35.0) g/dl RDW (11.0-16.0) % Plt Count (160-400) X10*3/uL MPV (9.4-12.3) fL Immature Gran % (Auto) (0.0-0.4) % Neut % (Auto) (45-73) % Lymph % (Auto) (20-40) % [place] % (Auto) (2-11) % Eos % (Auto) (0-4) % Baso % (Auto) (0-2) % Lymph # (Auto) (1.2-4.9) X10*3/uL [place] # (Auto) (0.1-1.2) X10*3/uL Eos # (Auto) (0.0-0.4) X10*3/uL Baso # (Auto) (0.0-0.2) X10*3/uL Abs Immat Gran (auto) (0.00-0.03) X10*3/uL Absolute Neuts (auto) (2.0-8.3) x10*3/uL Absolute Nucleated RBC (0.0-0.012) X10*3/uL Nucleated RBC % (auto) (0.0-0.2) /100WBC Sodium (135-145) mmol/L Potassium (3.3-5.1) mmol/L Chloride (96-108) mmol/L Carbon Dioxide (22-29) mmol/L Anion Gap (12-20) BUN (9-16) mg/dL Creatinine (0.5-1.4) mg/dL Estim Creat Clear Calc Estimated GFR Random Glucose (60-115) mg/dL Lactic Acid (0.5-2.0) mmol/L Calcium (8.4-10.2) mg/dL Magnesium (1.6-2.6) mg/dL Total Bilirubin (0.0-1.0) mg/dL Direct Bilirubin (0.0-0.5) mg/dL AST (5-31) U/L ALT (0-31) U/L Alkaline Phosphatase (39-117) U/L Total Protein (6.5-8.0) g/dL Albumin (3.5-5.0) g/dL Lipase (8-78) U/L Beta HCG, Quant < 2 mIU/mL Ethyl Alcohol < 10 mg/dL COVID-19 ([facility]) Negative (Negative) COVID-19 Clin Com See Note Influenza Type A ([facility]) Negative (Negative) Influenza Type B ([facility]) Negative (Negative) Influenza A & B Note See Note Discharge Plan Discharge Clinical Impression: Abdominal pain, Colitis, Intractable nausea and vomiting Patient Disposition: Admitted As Inpatient Prescriptions: No Action ondansetron 4 mg tablet,disintegrating 4 mg PO Q8H PRN (Reason: nausea and vomiting) Qty: 20 0RF promethazine 25 mg tablet 6.25 mg PO TID PRN (Reason: nausea and vomiting) Qty: 20 0RF Rx Instructions: 3 doses during day; last dose no later than 4 hr before bedtime promethazine 25 mg tablet 25 mg PO TID PRN (Reason: nausea and vomiting) Qty: 10 0RF diphenhydramine HCl [Benadryl Allergy] 25 mg tablet 25 mg PO Q6H PRN (Reason: nausea and vomiting) Qty: 10 0RF ondansetron 4 mg tablet,disintegrating 4 mg PO Q6-8H PRN (Reason: nausea and vomiting) Qty: 14 0RF ondansetron HCl [Zofran] 4 mg tablet 4 mg PO Q6H PRN (Reason: nausea and vomiting) Qty: 10 0RF ibuprofen 600 mg tablet 600 mg PO Q6H PRN (Reason: pain) Qty: 20 0RF cyclobenzaprine 10 mg tablet 10 mg PO TID PRN (Reason: muscle spasm) Qty: 10 0RF
[2022-05-18 10:57] LABS: MANUAL DIFF FLAG NO
[2022-05-18] MEDS: diphenhydrAMINE HCL 50 MG/ML VIAL 25 MG IVPUSH (10:59)
[2022-05-18 11:00] LABS: Basophils Percent Auto 0.3 % (0-2); Eosinophils Percent Auto 0.3 % (0-4); Hemoglobin 13.6 g/dl (12.0-16.0); Imm Gran Abs Auto 0.04 X10*3/uL (0.00-0.03); Imm Gran Pct Auto 0.3 % (0.0-0.4); Lymphocytes Percent Auto 16.8 % (20-40); Mean Corpuscular Hemoglobin 31.9 pg (27.0-33.0); Mean Corpuscular Volume 93.9 fL (80.0-98.0); Monocytes Absolute Auto 0.5 X10*3/uL (0.1-1.2); Monocytes Percent Auto 4.3 % (2-11); Neutrophils Absolute Auto 9.1 x10*3/uL (2.0-8.3); Platelet Count 302 X10*3/uL (160-400); Red Blood Count 4.26 X10*6/uL (4.20-5.50); Red Cell Distribution Width 11.9 % (11.0-16.0); White Blood Count 11.6 X10*3/uL (4.8-10.8)
[2022-05-18] MEDS: Metoclopramide HCl 10 MG/2 ML VIAL IVPUSH (11:00)
[2022-05-18] MEDS: 0.9 % Sodium Chloride 1,000 ML 999 ML IVCONT ×2 (11:00→12:01)
[2022-05-18] MEDS: Ketorolac Tromethamine 15 MG/ML VIAL IVPUSH (11:00)
[2022-05-18 11:06] VITALS: RESP 20
[2022-05-18 11:09] LABS: Lactic Acid 1.5 mmol/L (0.5-2.0)
[2022-05-18 11:13] LABS: Ethanol < 10 mg/dL
[2022-05-18 11:16] LABS: Alanine Aminotransferase 14 U/L (0-31); Albumin Level 4.5 g/dL (3.5-5.0); Alkaline Phosphatase 81 U/L (39-117); Anion Gap 16 (12-20); Aspartate Amino Transferase 18 U/L (5-31); Bilirubin Direct < 0.2 mg/dL (0.0-0.5); Bilirubin Total 0.4 mg/dL (0.0-1.0); Blood Urea Nitrogen 7 mg/dL (9-16); Calcium 9.5 mg/dL (8.4-10.2); Carbon Dioxide 20 mmol/L (22-29); Chloride 108 mmol/L (96-108); Creatinine Clr Calc Pharmacy 95.6; Estimated Glomerular Filt Rate > 60; Glucose Random 107 mg/dL (60-115); Lipase 32 U/L (8-78); Magnesium 1.9 mg/dL (1.6-2.6); Potassium 4.1 mmol/L (3.3-5.1); Sodium 140 mmol/L (135-145); Total Protein 7.2 g/dL (6.5-8.0)
[2022-05-18 11:21] LABS: COVID-19 Test Negative (Negative); HCG Quantitative < 2 mIU/mL; IDNOW Serial# 16C4AD1C; Influenza A Negative (Negative); Influenza B2 Negative (Negative)
[2022-05-18] MEDS: Haloperidol Lactate 5 MG/ML VIAL IM (12:01)
--- NOTE | 2022-05-18 12:43 | PC.NURSE ---
Pt continues to cry out, known history of cyclic vomiting.
[2022-05-18] MEDS: iohexoL 350 MG/ML 100 ML INFUS..BTL IV (12:44)
[2022-05-18] MEDS: Midazolam HCl/PF 2 MG/2 ML VIAL IVPUSH (12:51)
[2022-05-18] MEDS: Morphine Sulfate 4 MG/ML CARTRIDGE IVPUSH (14:25)
--- NOTE | 2022-05-18 14:34 | PHA.MEDREC ---
Pharmacy Consult ? Medication Reconciliation Pharmacy has completed the medication reconciliation. [facility] services used, no known home meds
[2022-05-18] MEDS: 0.9 % Sodium Chloride 1,000 ML 125 ML IVCONT (14:35)
--- NOTE | 2022-05-18 14:55 | P.HPHOSP_ITS ---
History of Present Illness Date of Service: 05/18/22 Chief Complaint: R sided abdominal pain, nausea, vomiting and diarrhea This is a 27 yo [place] speaking F who is seen with [facility] services. She reprots no significant PMH. She reports that she presented to the ED for right sided abdominal pain with associated nausea and non-bloody/non-bilious vomiting + diarrhea x 2 which began on the day of admission. The patient constantly closes her eyes and multiple attempts are taken to answer one question. She den ies any fevers or chills to me, but reportely stated that she was febrile the day prior. She does not answer questions regarding her recent food itnake, but does state she ate the evening prior to admission. She reports feeling at her baseline self the day before. She endorses smoking marijuana, with last use the day before admission. She reports a history of colitis in several of her aunts. She denies any sick contacts. In the ED her work up showed right sided colitis. She was given IV reglan, IV toradol, IV benadryl, IM haldol, IV versed and IV morphine. She was given 1L IVF. She continued to have intractable nausea and vomiting and hence will be admitted. Of note, she did not endorse diarrhea to the ED provider. She reported diarrhea to me and hence, will start her on IV rocephin/flagyl. Review of Systems Review of Systems: negative except HPI [facility] Medical History Cyclical vomiting Heavy menses Menses painful Pertinent family history: Colitis in several of her Aunts Surgical History No pertinent past surgical history Social History Alcohol intake: never Patient Tobacco Use Status: Tobacco use Unknown Substance Use Type: Marijuana Advance Directives: No Advance Directives Information Provided: Yes Meds Allergies Allergy/AdvReac Type Severity Reaction Status Date / Time morphine [MORPHINE] AdvReac Mild ITCHING Verified 07/02/20 13:25 Active Medications: Current Medications Acetaminophen (Acetaminophen 325 Mg Tablet) 650 mg PO Q6H PRN PRN Reason: Pain, Mild (Pain Scale 1-3) Sodium Chloride (Ns) 1,000 mls @ 125 mls/hr IVCONT .Q8H [facility] Last Admin: 05/18/22 14:35 Dose: 125 mls/hr Metronidazole (Flagyl) 500 mg in 100 mls @ 100 mls/hr IV Q8H [facility] Ceftriaxone Sodium 1 gm/ (Sodium Chloride) 50 mls @ 100 mls/hr IV Q24H [facility] Morphine Sulfate (Morphine Sulfate 4 Mg/Ml Cartridge) 2 mg IVPUSH Q4H PRN; Protocol PRN Reason: Pain, Severe (Pain Scale 7-10) Ondansetron HCl (Ondansetron Hcl 4 Mg/2 Ml Vial) 4 mg IVPUSH Q8H PRN PRN Reason: Nausea and Vomiting Pharmacy Consult (Consult Rx Perform Med Rec) 1 each MISCELLANE ONCE PRN PRN Reason: Consult order Sodium Chloride (0.9 % Sodium Chloride Flush 3 Ml Syringe) 3 ml IVFLUSH QSHIFT [facility] Home Medications Medication Instructions Recorded Confirmed Last Taken Type No Known Home Meds 05/18/22 05/18/22 Unknown History Physical Exam Vital Signs and Narrative: Vital Signs: Last Vital Signs Temp 100.0 F 05/18/22 10:17 Pulse 85 05/18/22 10:17 Resp 20 05/18/22 11:06 BP 140/85 H 05/18/22 10:17 Pulse Ox 98 05/18/22 10:17 O2 Del Method 05/18/22 10:17 BMI result Body Mass Index 25.6 Const: Other: Constitutional - Awake and Alert, No apparent distress Eyes - PERRLA, EOMI Cardiovascular - S1S2, RRR, No edema Respiratory - Normal lung expansion, Normal respiratory effort, No respiratory distress, CTA bilaterally Gastrointestinal - NT / ND; +BS;no abdominal tenderness to palpation (she has just received IV morphine for pain) - No CVA tenderness Extremities - no calf tenderness bilaterally, no swelling Musculoskeletal - Normal inspection, normal ROM Skin - Warm/Dry Neurological - Alert & oriented x3, No focal deficit Psychological - Appropriate affect Results Labs CBC and Chem 7: 05/18/22 10:51 05/18/22 10:51 Labs: Laboratory Results - last 24 hr 05/18/22 05/18/22 05/18/22 10:50 10:51 10:51 MCV 93.9 MCH 31.9 MCHC 34.0 RDW 11.9 Plt Count 302 MPV 9.0 L Immature Gran % (Auto) 0.3 Neut % (Auto) 78.0 H Lymph % (Auto) 16.8 L [place] % (Auto) 4.3 Eos % (Auto) 0.3 Baso % (Auto) 0.3 Lymph # (Auto) 2.0 [place] # (Auto) 0.5 Eos # (Auto) 0.0 Baso # (Auto) 0.0 Abs Immat Gran (auto) 0.04 H Absolute Neuts (auto) 9.1 H Absolute Nucleated RBC 0.000 Nucleated RBC % (auto) 0.0 Anion Gap 16 Estim Creat Clear Calc 95.6 Estimated GFR > 60 Random Glucose 107 Lactic Acid 1.5 Calcium 9.5 Magnesium 1.9 Total Bilirubin 0.4 Direct Bilirubin < 0.2 AST 18 D ALT 14 Alkaline Phosphatase 81 D Total Protein 7.2 Albumin 4.5 Lipase 32 Beta HCG, Quant Ethyl Alcohol COVID-19 ([facility]) COVID-19 Clin Com Influenza Type A ([facility]) Influenza Type B ([facility]) Influenza A & B Note 05/18/22 05/18/22 05/18/22 10:51 10:51 10:51 MCV MCH MCHC RDW Plt Count MPV Immature Gran % (Auto) Neut % (Auto) Lymph % (Auto) [place] % (Auto) Eos % (Auto) Baso % (Auto) Lymph # (Auto) [place] # (Auto) Eos # (Auto) Baso # (Auto) Abs Immat Gran (auto) Absolute Neuts (auto) Absolute Nucleated RBC Nucleated RBC % (auto) Anion Gap Estim Creat Clear Calc Estimated GFR Random Glucose Lactic Acid Calcium Magnesium Total Bilirubin Direct Bilirubin AST ALT Alkaline Phosphatase Total Protein Albumin Lipase Beta HCG, Quant < 2 Ethyl Alcohol < 10 COVID-19 ([facility]) Negative COVID-19 Clin Com See Note Influenza Type A ([facility]) Negative Influenza Type B ([facility]) Negative Influenza A & B Note See Note Imaging Radiologist's Impressions: Impressions Abdomen/Pelvis CT 05/18/22 12:42 IMPRESSION: Colitis involving the ascending colon through the hepatic flexure. Normal appendix. Fleischner guidelines were followed. Assessment and Plan (1) Colitis: Status: Acute Plan 27 yo F with no significant PMH who presents with a 1 day history of R-sided abdominal pain, nausea/vomiting/diarrhea and fevers at home. Her CT scan shows colitis. She will be admitted for further treatment and work up. 1. Acute colitis infectious vs inflammatory empiric IV rocephin/flagy IVF clear liquids if she can tolerate, otherwise NPO GI consult given her family history of colitis Full Code DVT pptx, low risk -- mechanical device and early ambulation Quality Stroke Does the patient have a stroke diagnosis?: No VTE Prior VTE?: No VTE Risk Level:: Medical - low VTE Device Contraindication: N/A - Device Ordered VTE Drug Contraindication: Treatment Not Indicated
[2022-05-18 15:11] VITALS: BP 105/61; PULSE 76; RESP 16; O2SAT 98
--- NOTE | 2022-05-18 15:27 | PC.NURSE ---
Pt states pain is much better. 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
--- NOTE | 2022-05-18 16:35 | P.EN_ITS ---
Event Note Date of Service: 05/18/22 Event Note: AMA Note Shortly after admission, informed by the RN that the patient had to leave the hospital citing early childhood issues. Before I could see the patient, she signed AMA papers and left. Per RN notes -- Leaving AMA for early childhood, says she will be returning later
--- NOTE | 2022-05-18 16:35 | PM.EVENT ---
Event Note Date of Service: 05/18/22 Event Note: AMA Note Shortly after admission, informed by the RN that the patient had to leave the hospital citing maternal child nurse issues. Before I could see the patient, she signed AMA papers and left. Per RN notes -- Leaving AMA for maternal child nurse, says she will be returning later
--- NOTE | 2022-05-18 16:37 | PM.EVENT ---
Event Note Date of Service: 05/18/22 Event Note: Final discharge diagnosis: 1. Acute colitis 2. Left against medical advice.
== END 2022-05-18 21:37 | disposition left against medical advice (07) ==
LOC: HO.ED 14:06 → HO.EDOVER 15:05
PROVIDERS: Admitting Provider Family Medicine; Emergency Provider Emergency Medicine; Visit Provider Family Medicine
DX: K52.9 Noninfective gastroenteritis and colitis, unspecified (principal); R11.15 Cyclical vomiting syndrome unrelated to migraine; R10.31 Right lower quadrant pain; F12.90 Cannabis use, unspecified, uncomplicated; R50.9 Fever, unspecified; Z20.822 Contact with and (suspected) exposure to COVID-19; Z79.899 Other long term (current) drug therapy
CPT/HCPCS: 74177; 80048; 80076; 82077; 83605; 83690; 83735; 84702; 85025; 87040; 87502; 87635; 96361; 96372; 96374; 96375; 99218; 99284; 99285; J1200; J1885; J2250; J2270; J2765; Q9967

== ENCOUNTER 2022-12-20 15:29 | Emergency (ER) | payer MEDICAID, SELFPAY ==
--- NOTE | 2022-12-20 15:31 | ED.GENADULT ---
HPI - General Adult General Chief complaint: Abdominal Pain Stated complaint: abd pain Time Seen by Provider: 12/20/22 19:47 Source: patient Mode of arrival: ambulatory Limitations: no limitations History of Present Illness HPI narrative: Patient history of cyclic vomiting syndrome specially when she gets menstrual. Started vomiting about 3 hours prior to arrival with suprapubic pain of menstrual cramps. No fever no chills vomited multiple times patient smokes marijuana but last time she smoked was last month also has increased anxiety Related Data Previous Rx's Medication Instructions Recorded lorazepam 1 mg tablet (Ativan) 1 mg PO BID PRN anxiety #14 tabs 12/20/22 ondansetron 4 mg disintegrating 4 mg PO Q6-8H PRN nausea and 12/20/22 tablet vomiting #10 tabs Allergies Allergy/AdvReac Type Severity Reaction Status Date / Time morphine [MORPHINE] AdvReac Mild ITCHING Verified 12/20/22 15:31 Review of Systems Review of Systems: Yes all other systems are reviewed and are negative PMFSH Past Medical History Medical History Cyclical vomiting Heavy menses Menses painful Surgical History No pertinent past surgical history Social History Social History Alcohol intake: never Patient Tobacco Use Status: Tobacco use Unknown Substance Use Type: Marijuana Advance Directives: No Advance Directives Information Provided: No Physical Exam ED Vital Signs: Vital Signs - 24 hr 12/20/22 15:32 12/20/22 17:40 12/20/22 19:39 Temperature 97.6 F 98.3 F Pulse Rate 94 85 81 Respiratory Rate 26 H 18 15 Blood Pressure 136/63 148/90 H 139/88 Pulse Oximetry 99 98 99 Oxygen Delivery Method Room Air Room Air Room Air 12/20/22 22:58 Temperature Pulse Rate 91 Respiratory Rate 14 Blood Pressure 117/67 Pulse Oximetry 99 Oxygen Delivery Method Room Air BMI result Body Mass Index 27.3 Appearance: Alert. Oriented X3. No acute distress. Eyes: No pallor or icterus ENT: Pharynx normal. Oral Mucosa moist Neck: Normal inspection. Neck supple. CVS: Normal heart rate and rhythm. Pulses normal. Respiratory: No respiratory distress. Equal air entry bilateral, no wheezing/rales/rhonchi Abdomen: Soft , diffusely tender no rebound tenderness or guarding Bowel sounds are present, no mass palpable, no CVA tenderness Skin: Skin warm and dry. Normal skin color. Normal skin turgor. Extremities: No lower extremity edema. No calf tenderness Neuro: Oriented X 3. No motor deficit. No sensory deficit.No cerebellar signs , cranial nerves II-XII intact Course Course Course Narrative: RME- 27 year old female presents for evaluation of generalized abdominal pain. Hx of similar. Symptoms started this morning. Plan for labs, ua,drug screen Medications Administered Discontinued Medications Generic Name Dose Route Start Last Admin Trade Name Freq PRN Reason Stop Dose Admin Sodium Chloride 1,000 mls @ 999 mls/hr 12/20/22 19:47 12/20/22 21:17 Ns IV 12/20/22 20:47 Infused .Q1H1M ONE Infusion Sodium Chloride 1,000 mls @ 999 mls/hr 12/20/22 19:48 12/20/22 21:17 Ns IV 12/20/22 20:48 Infused .Q1H1M ONE Infusion Lorazepam 2 mg 12/20/22 19:47 12/20/22 19:53 Lorazepam 2 Mg/Ml Vial IVPUSH 12/20/22 19:48 2 mg ONCE ONE Administration Prochlorperazine Edisylate 10 mg 12/20/22 19:47 12/20/22 19:53 Prochlorperazine Edisylate 10 Mg/2 Ml Vial IVPUSH 12/20/22 19:48 10 mg ONCE ONE Administration Medical Decision Making Medical Decision Making [facility] Narrative: Patient has cyclic vomiting syndrome especially during menstrual period feels better after IV hydration lorazepam Compazine taking p.o. fluids re-examination of the abdomen is soft nontender patient feels back to normal had leukocytosis likely from leukemoid reaction Lab Data [facility] Lab Attestation statement: I reviewed the patient's lab results. 12/20/22 17:45 12/20/22 17:45 Labs: Lab Results 12/20/22 12/20/22 Range/Units 17:45 17:45 WBC 22.2 H (4.8-10.8) X10*3/uL RBC 4.40 (4.20-5.50) X10*6/uL Hgb 14.1 (12.0-16.0) g/dl Hct 40.7 (37.0-47.0) % MCV 92.5 (80.0-98.0) fL MCH 32.0 (27.0-33.0) pg MCHC 34.6 (31.0-35.0) g/dl RDW 11.5 (11.0-16.0) % Plt Count 339 (160-400) X10*3/uL MPV 9.4 (9.4-12.3) fL Immature Gran % (Auto) 0.6 H (0.0-0.4) % Neut % (Auto) 91.4 H (45-73) % Lymph % (Auto) 4.4 L (20-40) % [place] % (Auto) 3.3 (2-11) % Eos % (Auto) 0.1 (0-4) % Baso % (Auto) 0.2 (0-2) % Lymph # (Auto) 1.0 L (1.2-4.9) X10*3/uL [place] # (Auto) 0.7 (0.1-1.2) X10*3/uL Eos # (Auto) 0.0 (0.0-0.4) X10*3/uL Baso # (Auto) 0.0 (0.0-0.2) X10*3/uL Abs Immat Gran (auto) 0.13 H (0.00-0.03) X10*3/uL Absolute Neuts (auto) 20.3 H (2.0-8.3) x10*3/uL Absolute Nucleated RBC 0.000 (0.0-0.012) X10*3/uL Nucleated RBC % (auto) 0.0 (0.0-0.2) /100WBC Smear Tech's Comments VERIFIED Sodium 140 (135-145) mmol/L Potassium 4.0 (3.3-5.1) mmol/L Chloride 109 H (96-108) mmol/L Carbon Dioxide 18 L (22-29) mmol/L Anion Gap 17 (12-20) BUN 11 (9-16) mg/dL Creatinine 0.82 (0.5-1.4) mg/dL Estim Creat Clear Calc 84.2 Estimated GFR > 60 Random Glucose 170 H (60-115) mg/dL Calcium 9.9 (8.4-10.2) mg/dL Total Bilirubin 0.8 (0.0-1.0) mg/dL AST 16 (5-31) U/L ALT 13 (0-31) U/L Alkaline Phosphatase 81 (39-117) U/L Total Protein 7.5 (6.5-8.0) g/dL Albumin 4.7 (3.5-5.0) g/dL Lipase 14 (8-78) U/L Discharge Plan Discharge Clinical Impression: Cyclic vomiting syndrome Patient Disposition: Home, Self-Care Instructions: Cyclic Vomiting Syndrome (ED) Additional Instructions: Drink plenty of fluids Nausea medicine as prescribed Ativan for severe anxiety Follow with PCP Prescriptions: New ondansetron 4 mg tablet,disintegrating 4 mg PO Q6-8H PRN (Reason: nausea and vomiting) Qty: 10 0RF lorazepam [Ativan] 1 mg tablet 1 mg PO BID PRN (Reason: anxiety) Qty: 14 0RF
[2022-12-20 15:32] VITALS: BP 136/63; PULSE 94; RESP 26; TEMP 36.4; O2SAT 99; BMI 27.3
[2022-12-20 17:40] VITALS: BP 148/90; PULSE 85; RESP 18; TEMP 36.8; O2SAT 98
[2022-12-20 17:58] LABS: Basophils Percent Auto 0.2 % (0-2); Eosinophils Percent Auto 0.1 % (0-4); Hematocrit 40.7 % (37.0-47.0); Hemoglobin 14.1 g/dl (12.0-16.0); Imm Gran Abs Auto 0.13 X10*3/uL (0.00-0.03); Imm Gran Pct Auto 0.6 % (0.0-0.4); Lymphocytes Percent Auto 4.4 % (20-40); MANUAL DIFF FLAG SCAN; Mean Corpuscular HGB Conc 34.6 g/dl (31.0-35.0); Mean Corpuscular Volume 92.5 fL (80.0-98.0); Mean Platelet Volume 9.4 fL (9.4-12.3); Monocytes Absolute Auto 0.7 X10*3/uL (0.1-1.2); Monocytes Percent Auto 3.3 % (2-11); Neutrophils Absolute Auto 20.3 x10*3/uL (2.0-8.3); Neutrophils Percent Auto 91.4 % (45-73); Platelet Count 339 X10*3/uL (160-400); Red Cell Distribution Width 11.5 % (11.0-16.0); SCAN SMEAR FLAG 1; White Blood Count 22.2 X10*3/uL (4.8-10.8)
[2022-12-20 18:14] LABS: Alanine Aminotransferase 13 U/L (0-31); Albumin Level 4.7 g/dL (3.5-5.0); Alkaline Phosphatase 81 U/L (39-117); Anion Gap 17 (12-20); Aspartate Amino Transferase 16 U/L (5-31); Bilirubin Total 0.8 mg/dL (0.0-1.0); Blood Urea Nitrogen 11 mg/dL (9-16); Calcium 9.9 mg/dL (8.4-10.2); Carbon Dioxide 18 mmol/L (22-29); Chloride 109 mmol/L (96-108); Creatinine Clr Calc Pharmacy 84.2; Estimated Glomerular Filt Rate > 60; Glucose Random 170 mg/dL (60-115); Lipase 14 U/L (8-78); Sodium 140 mmol/L (135-145); Total Protein 7.5 g/dL (6.5-8.0)
[2022-12-20 18:22] LABS: SLIDE REVIEW VERIFIED
[2022-12-20 19:39] VITALS: BP 139/88; PULSE 81; RESP 15; O2SAT 99
[2022-12-20] MEDS: LORazepam 2 MG/ML VIAL IVPUSH (19:53)
[2022-12-20] MEDS: Prochlorperazine Edisylate 10 MG/2 ML VIAL IVPUSH (19:53)
[2022-12-20] MEDS: 0.9 % Sodium Chloride 1,000 ML 999 ML IV ×2 (19:54→19:55)
--- NOTE | 2022-12-20 20:40 | PC.NURSE ---
late entry: pt throwing up when this RN entered room, this RN placed 20g IV in RAC then medicated per SEP. Pt now sleeping respirations even and unlabored, skin pwd, no apparent distress
[2022-12-20 22:58] VITALS: BP 117/67; PULSE 91; RESP 14; O2SAT 99
== END 2022-12-20 23:23 | disposition home or self-care (01) ==
PROVIDERS: Physician Assistant; Emergency Provider Internal Medicine
DX: R11.15 Cyclical vomiting syndrome unrelated to migraine (principal); R10.30 Lower abdominal pain, unspecified; F12.90 Cannabis use, unspecified, uncomplicated
CPT/HCPCS: 36415; 80053; 83690; 85025; 96361; 96374; 96375; 99284; J2060

== ENCOUNTER 2023-09-22 14:40 | Emergency (ER) | payer OTHER, SELFPAY ==
[2023-09-22 15:25] VITALS: BP 105/50; PULSE 88; RESP 19; TEMP 36.6; O2SAT 98; BMI 24.7
--- NOTE | 2023-09-22 15:29 | ED_ITS ---
HPI - Nausea/Vomiting/Diarrhea General Chief complaint: Nausea/Vomiting/Diarrhea Stated complaint: Vomiting, Dizziness etoh last night Time Seen by Provider: 09/22/23 19:49 Source: patient Mode of arrival: ambulatory Limitations: no limitations History of Present Illness HPI Narrative: Patient is a 28-year-old female with history of colitis presenting to the emergency department with complaint of epigastric pain, nausea and vomiting after drinking a bottle of Donna last night. Patient states that she took Zofran at home without relief, has been unable to tolerate p.o. fluids today. Denies any diarrhea. Denies fevers. States emesis was nonbloody, nonbilious. MD elicited complaint: nausea, vomiting and abdominal pain Onset (ago): hour(s) Description of vomiting: watery Associated nausea: Yes Associated abdominal pain: Yes Location of pain: epigastric Radiation: does not radiate Pain consistency: colicky Severity: mild Context: alcohol abuse Associated symptoms: denies other symptoms Treatment prior to arrival: other (Zofran) Related Data Previous Rx's Medication Instructions Recorded lorazepam 1 mg tablet (Ativan) 1 mg PO BID PRN anxiety #14 tabs 12/20/22 ondansetron 4 mg disintegrating 4 mg PO Q6-8H PRN nausea and 12/20/22 tablet vomiting #10 tabs Allergies Allergy/AdvReac Type Severity Reaction Status Date / Time morphine [MORPHINE] AdvReac Mild ITCHING Verified 09/22/23 15:25 Review of Systems 2 Review of Systems: As per HPI. Yes all other systems are reviewed and are negative Gastrointestinal: Gastrointestinal: Reports nausea PMFSH Past Medical History Medical History Cyclical vomiting Heavy menses Menses painful Surgical History No pertinent past surgical history Social History Social History Alcohol intake: current Alcohol intake frequency: a few times a month Alcohol type: beer Patient Tobacco Use Status: Tobacco use Unknown Smoked in Last 30 Days: Yes Use of substances other than those prescribed or required for medical reasons: Yes Substance Use Type: Marijuana Advance Directives: No Advance Directives Information Provided: No Patient : No Physical Exam 2 Vital Signs: Vital Signs: Last Vital Signs Temp 98.9 F 09/22/23 19:28 Pulse 77 09/22/23 19:28 Resp 17 09/22/23 19:28 BP 118/71 09/22/23 19:28 Pulse Ox 97 09/22/23 19:28 O2 Del Method Room Air 09/22/23 19:28 BMI result Body Mass Index 24.7 Course Course Course Narrative: This is a rapid medical exam. Defer additional HPI, ROS, PE to primary provider. 28-year-old female here with complaints of abdominal pain and vomiting after drinking alcohol last evening. Will obtain labs, UA, give sublingual zofran Vitals state Medications Administered Discontinued Medications Generic Name Dose Route Start Last Admin Trade Name Freq PRN Reason Stop Dose Admin Sodium Chloride 1,000 mls @ 999 mls/hr 09/22/23 20:15 09/22/23 20:32 Ns IV 09/22/23 21:15 999 mls/hr .Q1H1M CHARLA Administration Metoclopramide HCl 10 mg 09/22/23 20:07 09/22/23 20:29 Metoclopramide Hcl 10 Mg/2 Ml Vial IVPUSH 09/22/23 20:08 10 mg ONCE ONE Administration Medical Decision Making Medical Decision Making [facility] Narrative: Patient is a 28-year-old female with history of colitis presenting to the emergency department with complaint of epigastric pain, nausea and vomiting after drinking a bottle of Donna last night. On exam patient is awake, A+Ox3, VS WNL, afebrile, normal neurological exam without focal deficits, physical exam findings as above. Given reported symptoms and physical exam findings, initial differential includes alcohol induced gastritis, GERD, viral illness. Labs notable for chronic leukocytosis, otherwise unremarkable, ethanol negative. Mild epigastric tenderness, do not feel imaging is indicated at this time. Do not suspect ACS, obstruction. Will treat with IV fluids and reglan, PO trial. 21:20 Patient requesting discharge prior to completion of IV fluids. States she has been able to tolerate small sips of PO fluids. Feel patient is stable for discharge home. Patient states she has zofran at home which was previously prescribed to her. Return precautions discussed. Patient verbalized understanding of and agreement with plan. Differential Diagnosis Differential Diagnoses: The differential diagnosis associated with the presentation includes as per [facility] Lab Data [facility] Lab Attestation statement: I reviewed the patient's lab results. as per [facility] 09/22/23 16:22 09/22/23 16:22 Labs: Lab Results 09/22/23 Range/Units 16:22 WBC 14.2 H (4.8-10.8) X10*3/uL RBC 4.00 L (4.20-5.50) X10*6/uL Hgb 12.9 (12.0-16.0) g/dl Hct 37.2 (37.0-47.0) % MCV 93.0 (80.0-98.0) fL MCH 32.3 (27.0-33.0) pg MCHC 34.7 (31.0-35.0) g/dl RDW 12.1 (11.0-16.0) % Plt Count 304 (160-400) X10*3/uL MPV 8.9 L (9.4-12.3) fL Immature Gran % (Auto) 0.5 H (0.0-0.4) % Neut % (Auto) 77.6 H (45-73) % Lymph % (Auto) 18.8 L (20-40) % [place] % (Auto) 2.7 (2-11) % Eos % (Auto) 0.1 (0-4) % Baso % (Auto) 0.3 (0-2) % Lymph # (Auto) 2.7 (1.2-4.9) X10*3/uL [place] # (Auto) 0.4 (0.1-1.2) X10*3/uL Eos # (Auto) 0.0 (0.0-0.4) X10*3/uL Baso # (Auto) 0.0 (0.0-0.2) X10*3/uL Abs Immat Gran (auto) 0.07 H (0.00-0.03) X10*3/uL Absolute Neuts (auto) 11.0 H (2.0-8.3) x10*3/uL Absolute Nucleated RBC 0.000 (0.0-0.012) X10*3/uL Nucleated RBC % (auto) 0.0 (0.0-0.2) /100WBC Sodium 141 (135-145) mmol/L Potassium 3.8 (3.3-5.1) mmol/L Chloride 111 H (96-108) mmol/L Carbon Dioxide 23 (22-29) mmol/L Anion Gap 11 L (12-20) BUN 8 L (9-16) mg/dL Creatinine 0.69 (0.5-1.4) mg/dL Estim Creat Clear Calc 102.6 Estimated GFR > 60 Random Glucose 100 (60-115) mg/dL Calcium 8.9 D (8.4-10.2) mg/dL Total Bilirubin 0.2 (0.0-1.0) mg/dL Direct Bilirubin < 0.2 (0.0-0.5) mg/dL AST 18 (5-31) U/L ALT 17 (0-31) U/L Alkaline Phosphatase 77 (39-117) U/L Total Protein 6.9 (6.5-8.0) g/dL Albumin 4.3 (3.5-5.0) g/dL Lipase 20 (8-78) U/L Ethyl Alcohol < 10 mg/dL Influenza Type A (PCR) NEGATIVE (Negative) Influenza Type B (PCR) NEGATIVE (Negative) RSV RNA Qual (PCR) NEGATIVE (Negative) SARS-CoV-2 RNA (RT-PCR) NEGATIVE (Negative) External Record Review External record reviewed: Inpatient record, Office record and Outpatient record Discharge Plan Discharge Clinical Impression: Nausea & vomiting, Gastritis Patient Disposition: Home, Self-Care Instructions: Gastritis (DC), Acute Nausea and Vomiting (ED) Additional Instructions: You were evaluated in the emergency department today for epigastric pain, nausea, vomiting which is most likely due to irritation of the lining of your stomach from alcohol. You can use Mylanta, which is available over the counter, to help manage your symptoms. Avoid spicy or acidic foods. Please follow up with your primary care physician within two days. Return to the emergency department if you experience shortness of breath, worsening or uncontrolled abdominal pain, chest pain, light headedness, faiting, persistent nausea and vomiting, bloody vomit or stools, black, tarry stools, or any other concerning symptoms. Prescriptions: No Action ondansetron 4 mg tablet,disintegrating 4 mg PO Q6-8H PRN (Reason: nausea and vomiting) Qty: 10 0RF lorazepam [Ativan] 1 mg tablet 1 mg PO BID PRN (Reason: anxiety) Qty: 14 0RF
[2023-09-22 16:41] LABS: MANUAL DIFF FLAG NO
[2023-09-22 16:43] LABS: Basophils Percent Auto 0.3 % (0-2); Eosinophils Percent Auto 0.1 % (0-4); Hematocrit 37.2 % (37.0-47.0); Hemoglobin 12.9 g/dl (12.0-16.0); Imm Gran Abs Auto 0.07 X10*3/uL (0.00-0.03); Imm Gran Pct Auto 0.5 % (0.0-0.4); Lymphocytes Absolute Auto 2.7 X10*3/uL (1.2-4.9); Lymphocytes Percent Auto 18.8 % (20-40); Mean Corpuscular HGB Conc 34.7 g/dl (31.0-35.0); Mean Corpuscular Hemoglobin 32.3 pg (27.0-33.0); Mean Platelet Volume 8.9 fL (9.4-12.3); Monocytes Absolute Auto 0.4 X10*3/uL (0.1-1.2); Monocytes Percent Auto 2.7 % (2-11); Neutrophils Percent Auto 77.6 % (45-73); Platelet Count 304 X10*3/uL (160-400); Red Cell Distribution Width 12.1 % (11.0-16.0); White Blood Count 14.2 X10*3/uL (4.8-10.8)
[2023-09-22 17:02] LABS: Alanine Aminotransferase 17 U/L (0-31); Albumin Level 4.3 g/dL (3.5-5.0); Alkaline Phosphatase 77 U/L (39-117); Anion Gap 11 (12-20); Aspartate Amino Transferase 18 U/L (5-31); Bilirubin Direct < 0.2 mg/dL (0.0-0.5); Bilirubin Total 0.2 mg/dL (0.0-1.0); Blood Urea Nitrogen 8 mg/dL (9-16); Calcium 8.9 mg/dL (8.4-10.2); Carbon Dioxide 23 mmol/L (22-29); Chloride 111 mmol/L (96-108); Creatinine Clr Calc Pharmacy 102.6; Estimated Glomerular Filt Rate > 60; Ethanol < 10 mg/dL; Glucose Random 100 mg/dL (60-115); Lipase 20 U/L (8-78); Potassium 3.8 mmol/L (3.3-5.1); Sodium 141 mmol/L (135-145); Total Protein 6.9 g/dL (6.5-8.0)
[2023-09-22 17:23] LABS: Influenza A PCR NEGATIVE (Negative); Influenza B PCR NEGATIVE (Negative); Resp Syncy Virus RNA Qual PCR NEGATIVE (Negative); SARS COV2 PCR INHOUSE NEGATIVE (Negative)
[2023-09-22 19:28] VITALS: BP 118/71; PULSE 77; RESP 17; TEMP 37.2; O2SAT 97
--- NOTE | 2023-09-22 19:33 | PC.NURSE ---
this rn assumed care of pt. pt from home reporting episodes of nausea and vomiting since this morning after drinking multiple alcoholic beverages last night. pt reports daily marijuana use at this time. pt denies abdominal pain but reports chest pressure when vomiting. pt denies diarrhea. abdomen soft non tender to touch.
[2023-09-22] MEDS: Metoclopramide HCl 10 MG/2 ML VIAL IVPUSH (20:29)
[2023-09-22] MEDS: 0.9 % Sodium Chloride 1,000 ML 999 ML IV (20:32)
--- NOTE | 2023-09-22 20:33 | PC.NURSE ---
22G placed in right AC, pt medicated per mar, fluid bolus hanging.
[2023-09-22 21:29] VITALS: BP 116/62; PULSE 82; RESP 17; TEMP 37.1; O2SAT 99
== END 2023-09-22 21:31 | disposition home or self-care (01) ==
PROVIDERS: Nurse Practitioner Family; Emergency Provider Emergency Medicine
DX: K29.70 Gastritis, unspecified, without bleeding (principal); R11.2 Nausea with vomiting, unspecified; R10.13 Epigastric pain; Z79.899 Other long term (current) drug therapy; Z11.52 Encounter for screening for COVID-19; Z20.822 Contact with and (suspected) exposure to COVID-19
CPT/HCPCS: 0241U; 36415; 80048; 80076; 80307; 83690; 85025; 96374; 99284; J2765

== ENCOUNTER 2023-11-16 16:21 | Emergency (ER) | payer OTHER, SELFPAY ==
[2023-11-16 16:32] VITALS: BP 104/70; PULSE 92; RESP 19; TEMP 36.6; O2SAT 100; BMI 26.6
--- NOTE | 2023-11-16 16:32 | ED_ITS ---
HPI - Eye Problem General Chief complaint: Eye Problems Stated complaint: blurry vision, pain in eyes Source: patient Mode of arrival: ambulatory Limitations: no limitations History of Present Illness HPI Narrative: Patient is a 28-year-old female presenting to emergency department for evaluation of eye pain. Pain to left worse than right, blurry vision, feels unable the eye due to the pain, is noted to be excessively watering she reports a foreign body sensation Related Data Previous Rx's ?Medication ?Instructions ?Recorded lorazepam 1 mg tablet (Ativan) 1 mg PO BID PRN anxiety #14 tabs 12/20/22 ondansetron 4 mg disintegrating 4 mg PO Q6-8H PRN nausea and 12/20/22 tablet vomiting #10 tabs Allergies Allergy/AdvReac Type Severity Reaction Status Date / Time morphine [MORPHINE] AdvReac Mild ITCHING Verified 11/16/23 16:33 Review of Systems Review of Systems: Yes all other systems are reviewed and are negative PMFSH Past Medical History Attestation statement: The following information was validated with the patient. Source: old records reviewed Medical History Cyclical vomiting Menses painful Heavy menses Surgical History No pertinent past surgical history Social History Social History Alcohol intake: current Alcohol intake frequency: a few times a month Alcohol type: beer Patient Tobacco Use Status: Tobacco use Unknown Substance Use Type: Marijuana Physical Exam Vital Signs: Vital Signs: Last Vital Signs Temp 98 F 11/16/23 16:32 Pulse 92 11/16/23 16:32 Resp 19 11/16/23 16:32 BP 104/70 11/16/23 16:32 Pulse Ox 100 11/16/23 16:32 O2 Del Method Room Air 11/16/23 16:32 BMI result Body Mass Index 26.6 Appearance: Alert.?Oriented to person, place and time. No acute distress.?Normal affect. Eyes: Pupils equal, round and reactive to light.?bilateral sclera injected, conjunctival erythema. copious clear discharge from left eye. ENT: Pharynx normal.?? Neck: Normal inspection.? Neck supple.?? CVS: Heart sounds normal. Normal heart rate and rhythm.? Pulses normal.?? Respiratory: No respiratory distress.? Lung sounds clear to auscultation bilaterally?? Skin: Skin warm and dry.? Normal skin color.? Extremities: No lower extremity edema.? Neuro: Moves all extremities spontaneously. Sensation intact bilaterally. Ambulates with normal steady gait. Course Course Course Narrative: This is an RME performed by Wale Chong PERFORMANCE CONSULTANT: Additional HPI, ROS, PE not included below will be deferred to primary provider. Patient is a 28-year-old female presenting to emergency department for evaluation of eye pain. Pain to left worse than right, blurry vision, feels unable the eye due to the pain, is noted to be excessively watering she reports a foreign body sensation Medical Decision Making Medical Decision Making [facility] Narrative: Patient is a 28-year-old female who presents emergency department for evaluation of bilateral painful itchy eyes of sudden onset. Excessive tearing to the left eye with reported foreign body sensation. Patient left without completing treatment pending visual acuity, fluorescein examination and intra- ocular pressure Assessment. Differential Diagnosis Differential Diagnoses: The differential diagnosis associated with the presentation includes ( acute angle glaucoma, scleritis, uveitis / iritis, conjunctivitis, keratitis) Admission/Observation Consideration of admission/observation: Escalation of care including admission/observation considered ( see narrative above) Discharge Plan Discharge Patient Disposition: Left W/O Completing Treatment Prescriptions: No Action ondansetron 4 mg tablet,disintegrating 4 mg PO Q6-8H PRN (Reason: nausea and vomiting) Qty: 10 0RF lorazepam [Ativan] 1 mg tablet 1 mg PO BID PRN (Reason: anxiety) Qty: 14 0RF Print Language: Chinese
== END 2023-11-16 17:52 | disposition left against medical advice (07) ==
PROVIDERS: Emergency Provider Emergency Medicine Emergency Medical Services
DX: H53.8 Other visual disturbances (principal); H57.13 Ocular pain, bilateral; Z53.21 Procedure and treatment not carried out due to patient leaving prior to being seen by health care provider
CPT/HCPCS: 99281